=== PATIENT | female | born 1955 | race Caucasian/White ===

== ENCOUNTER → 2016-06-04 | Outpatient (CLI) | payer OTHER ==
[~2016-06-04] MED LIST: ASPI81TA28 PO; IPRA1AER2 INH; LEVO150T9 PO; MECL1TAB42 PO; MOME220A INH; NIAC1TAB52 PO
[2016-06-04 12:24] LABS: BASO % 0.5 %; BASO ABS # 0.03 K/uL (0-0.2); COMPLETE YES; EOS % 8.2 %; HEMATOCRIT 39.3 % (37-47); IG% 0.2 %; LYMPH % 26.8 %; LYMPH ABS # 1.53 K/uL (1.2-3.4); MEAN CELL VOLUME 87.1 fL (80-100); MEAN CORPUSCULAR HEMOGLOBIN 28.4 pg (25-34); MEAN CORPUSCULAR HGB CONC 32.6 g/dl (32-36); MEAN PLATELET VOLUME 11.8 fL (7.4-10.4); MONO % 10.5 %; NEUT % 53.8 %; PLATELET COUNT 360 K/uL (130-400); RED BLOOD COUNT 4.51 M/uL (4.2-5.4); WHITE BLOOD COUNT 5.71 K/uL (4.8-10.8)
[2016-06-04 12:37] LABS: ESTIMATED AVERAGE GLUCOSE 114 mg/dl; HA1C FLAG Normal (Normal)
[2016-06-04 12:41] LABS: ALB/GLOB RATIO 1.1 (0.9-2); ALKALINE PHOSPHATASE 73 U/L (45-117); ALT/SGPT 16 U/L (12-78); AST/SGOT 16 U/L (15-37); BLOOD UREA NITROGEN 21 mg/dl (7-18); BUN/CREATININE RATIO 23.3 (10-20); CALCIUM 8.9 mg/dl (8.5-10.1); CARBON DIOXIDE 27 mmol/L (21-32); CHLORIDE 107 mmol/L (98-107); CHOLESTEROL 215 mg/dl (0-200); CHOLESTEROL/HDL RATIO 4.2; GLUCOSE 95 mg/dl (70-99); HDL CHOLESTEROL 51 mg/dl; LDL CHOLESTEROL CALCULATED 142 mg/dl; POTASSIUM 4.8 mmol/L (3.5-5.1); SODIUM 142 mmol/L (136-145); TRIGLYCERIDES 111 mg/dl (0-150); VERY LOW DENSITY LIPOPROT CALC 22 mg/dl
== END | disposition home or self-care (01) ==
LOC: C.LABBFT 10:04
PROVIDERS: ATTEND Internal Medicine
DX: R73.01 Impaired fasting glucose (principal)

== ENCOUNTER → 2016-06-28 | Outpatient (CLI) | payer OTHER | END | disposition home or self-care (01) | LOC: C.RDSM 13:10 | PROVIDERS: ATTEND Physical Medicine & Rehabilitation Sports Medicine | DX: G89.18 Other acute postprocedural pain (principal); Z96.651 Presence of right artificial knee joint ==

== ENCOUNTER → 2016-12-09 | Outpatient (CLI) | payer OTHER ==
[2016-12-09 11:51] LABS: BASO % 0.4 %; BASO ABS # 0.03 K/uL (0-0.2); COMPLETE YES; EOS % 5.9 %; HEMATOCRIT 40.1 % (37-47); IG% 0.1 %; LYMPH % 22.4 %; LYMPH ABS # 1.65 K/uL (1.2-3.4); MEAN CELL VOLUME 86.8 fL (80-100); MEAN CORPUSCULAR HEMOGLOBIN 27.1 pg (25-34); MEAN CORPUSCULAR HGB CONC 31.2 g/dl (32-36); MEAN PLATELET VOLUME 11.8 fL (7.4-10.4); MONO % 11.7 %; NEUT % 59.5 %; PLATELET COUNT 322 K/uL (130-400); RED BLOOD COUNT 4.62 M/uL (4.2-5.4); WHITE BLOOD COUNT 7.35 K/uL (4.8-10.8)
[2016-12-09 12:03] LABS: ESTIMATED AVERAGE GLUCOSE 117 mg/dl; HA1C FLAG Normal (Normal)
[2016-12-09 12:55] LABS: ALT/SGPT 15 U/L (12-78); AST/SGOT 11 U/L (15-37); BLOOD UREA NITROGEN 24 mg/dl (7-18); BUN/CREATININE RATIO 27.2 (10-20); CARBON DIOXIDE 27 mmol/L (21-32); CHLORIDE 108 mmol/L (98-107); CHOLESTEROL 210 mg/dl (0-200); CREATININE 0.87 mg/dl (0.60-1.20); GLUCOSE 96 mg/dl (70-99); POTASSIUM 4.6 mmol/L (3.5-5.1); SODIUM 142 mmol/L (136-145)
[2016-12-09 13:06] LABS: ALKALINE PHOSPHATASE 98 U/L (45-117); CHOLESTEROL/HDL RATIO 4.1; HDL CHOLESTEROL 51 mg/dl; LDL CHOLESTEROL CALCULATED 135 mg/dl; THYROID STIMULATING HORMONE 0.546 uIu/ml (0.300-4.500); TRIGLYCERIDES 119 mg/dl (0-150); VERY LOW DENSITY LIPOPROT CALC 24 mg/dl
== END | disposition home or self-care (01) ==
LOC: C.LABBFT 08:21
PROVIDERS: ATTEND Internal Medicine
DX: Z00.00 Encounter for general adult medical examination without abnormal findings (principal); E03.9 Hypothyroidism, unspecified; E78.00 Pure hypercholesterolemia, unspecified; D64.9 Anemia, unspecified; R73.01 Impaired fasting glucose; E53.8 Deficiency of other specified B group vitamins

== ENCOUNTER → 2017-06-09 | Outpatient (CLI) | payer OTHER ==
[2017-06-09 12:44] LABS: BASO % 0.8 %; BASO ABS # 0.05 K/uL (0-0.2); EOS ABS # 0.53 K/uL (0-0.5); HEMATOCRIT 40.3 % (37-47); HEMOGLOBIN 12.8 g/dL (12.0-16.0); IG# 0.01 K/uL (0.00-0.02); LYMPH % 26.6 %; LYMPH ABS # 1.75 K/uL (1.2-3.4); MEAN CELL VOLUME 87.2 fL (80-100); MEAN CORPUSCULAR HEMOGLOBIN 27.7 pg (25-34); MEAN CORPUSCULAR HGB CONC 31.8 g/dl (32-36); MEAN PLATELET VOLUME 11.6 fL (7.4-10.4); MONO % 10.3 %; MONO ABS # 0.68 K/uL (0.11-0.59); NEUT % 54.1 %; NEUT ABS # 3.57 K/uL (1.4-6.5); PLATELET COUNT 319 K/uL (130-400); RED CELL DISTRIBUTION WIDTH CV 16.3 % (11.5-14.5); RED CELL DISTRIBUTION WIDTH SD 51.4 fL (36.4-46.3); WHITE BLOOD COUNT 6.59 K/uL (4.8-10.8)
[2017-06-09 13:07] LABS: ALBUMIN 3.9 gm/dl (3.4-5.0); ALT/SGPT 18 U/L (12-78); BLOOD UREA NITROGEN 22 mg/dl (7-18); CALCIUM 9.7 mg/dl (8.5-10.1); CARBON DIOXIDE 27 mmol/L (21-32); CREATININE 0.89 mg/dl (0.60-1.20); GLUCOSE 97 mg/dl (70-99); POTASSIUM 4.8 mmol/L (3.5-5.1); SODIUM 137 mmol/L (136-145)
[2017-06-09 13:17] LABS: ALKALINE PHOSPHATASE 91 U/L (45-117); AST/SGOT 14 U/L (15-37); CHOLESTEROL 226 mg/dl (0-200); LDL CHOLESTEROL CALCULATED 148 mg/dl; TOTAL PROTEIN 7.6 gm/dl (6.4-8.2)
[2017-06-09 13:28] LABS: HEMOGLOBIN A1C 5.7 % (4.5-5.6)
== END | disposition home or self-care (01) ==
LOC: C.LABBFT 10:45
PROVIDERS: ATTEND Physician Assistant Medical
DX: E53.8 Deficiency of other specified B group vitamins (principal); E78.00 Pure hypercholesterolemia, unspecified; E03.9 Hypothyroidism, unspecified; R73.01 Impaired fasting glucose

== ENCOUNTER → 2017-06-27 | Outpatient (CLI) | payer OTHER | END | disposition home or self-care (01) | LOC: C.RDSM 12:51 | PROVIDERS: ATTEND Physical Medicine & Rehabilitation Sports Medicine | DX: Z96.651 Presence of right artificial knee joint (principal) ==

== ENCOUNTER → 2017-12-16 | Outpatient (CLI) | payer OTHER ==
[2017-12-16 13:11] LABS: HEMOGLOBIN A1C 5.9 % (4.5-5.6)
[2017-12-16 13:21] LABS: ALBUMIN 3.6 gm/dl (3.4-5.0); ALKALINE PHOSPHATASE 93 U/L (45-117); ALT/SGPT 16 U/L (12-78); AST/SGOT 15 U/L (15-37); BLOOD UREA NITROGEN 19 mg/dl (7-18); CALCIUM 8.7 mg/dl (8.5-10.1); CARBON DIOXIDE 28 mmol/L (21-32); CHOLESTEROL 236 mg/dl (0-200); CREATININE 0.87 mg/dl (0.60-1.20); GLUCOSE 102 mg/dl (70-99); LDL CHOLESTEROL CALCULATED 164 mg/dl; POTASSIUM 4.3 mmol/L (3.5-5.1); SODIUM 140 mmol/L (136-145)
== END | disposition home or self-care (01) ==
LOC: C.LABBFT 09:16
PROVIDERS: ATTEND Internal Medicine
DX: E03.9 Hypothyroidism, unspecified (principal); R73.01 Impaired fasting glucose; E78.00 Pure hypercholesterolemia, unspecified

== ENCOUNTER 2019-01-15 00:28 | Observation (INO) ==
[2019-01-15 01:22] LABS: Basophils # (auto) 0.03 K/uL (0-0.2); Basophils % (auto) 0.4 %; Eosinophils # (auto) 0.38 K/uL (0-0.5); Eosinophils % (auto) 4.6 %; Hematocrit (blood only) 37.2 % (37-47); Hemoglobin 11.9 g/dL (12.0-16.0); Immature Granulocytes # (auto) 0.01 K/uL (0.00-0.02); Immature Granulocytes % (auto) 0.1 %; Lymphocytes # (auto) 2.22 K/uL (1.2-3.4); Lymphocytes % (auto) 26.6 %; Mean Corpuscular Hemoglobin 27.7 pg (25-34); Mean Corpuscular Volume 86.5 fL (80-100); Mean Platelet Volume 11.3 fL (7.4-10.4); Monocytes # (auto) 0.75 K/uL (0.11-0.59); Neutrophils # (auto) 4.96 K/uL (1.4-6.5); Neutrophils % (auto) 59.3 %; Platelet Count 286 K/uL (130-400); RDW Coefficient of Variation 15.3 % (11.5-14.5); RDW Standard Deviation 48.6 fL (36.4-46.3); White Blood Count 8.35 K/uL (4.8-10.8)
[2019-01-15 01:29] LABS: Alanine Aminotransferase 16 U/L (12-78); Albumin Level 3.6 gm/dl (3.4-5.0); Aspartate Aminotransferase 10 U/L (15-37); BUN Creatinine Ratio 24.3 (10-20); Blood Urea Nitrogen 26 mg/dl (7-18); Calcium 8.4 mg/dl (8.5-10.1); Carbon Dioxide 28 mmol/L (21-32); Chloride 106 mmol/L (98-107); Est GFR (African American) 63.8; Est GFR (Non-African American) 55.1; Glucose 112 mg/dl (70-99); Magnesium 2.4 mg/dl (1.8-2.4); Potassium 4.3 mmol/L (3.5-5.1); Sodium 142 mmol/L (136-145)
[2019-01-15 01:33] LABS: Partial Thromboplastin Ratio 0.9; Partial Thromboplastin Time 24.6 Seconds (21.0-31.0); Prothrombin Time 10.3 Seconds (9.0-12.0)
[2019-01-15 01:34] LABS: Alkaline Phosphatase 77 U/L (45-117); Bilirubin,Total 0.3 mg/dl (0.2-1); Globulin 3.6 gm/dl (2.5-4.0); Total Protein 7.2 gm/dl (6.4-8.2); Troponin I < 0.015 ng/ml (0-0.045)
[2019-01-15] MEDS ORDERED: ACETAMINOPHEN 500 MG TAB PO STA (02:35)
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
[2019-01-15] MEDS ORDERED: TRAMADOL HCL 50 MG TABLET PO PRN (04:27)
[2019-01-15] MEDS ORDERED: PHARMACIST DISCHARGE MED REC CONSULT PRN (04:27)
[2019-01-15] MEDS ORDERED: POLYETHYLENE (MIRALAX) 17 GM PACK PO PRN (04:27)
[2019-01-15] MEDS ORDERED: ONDANSETRON INJ 2 MG/ML 2 ML VIAL IV PRN (04:27)
[2019-01-15] MEDS ORDERED: OPTIRAY 320 125ml IV PRN (05:01)
[2019-01-15] MEDS: SODIUM CHLORIDE 0.9% 1000ML 1,000 ML IV SCH ×2 (05:16→15:25)
--- NOTE | 2019-01-15 05:37 | Emergency Department Note ---
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 The patient states she was watc garcia TV and started to have pain in her right eye and right ear. The patient's friend states the patient passed out for 10 minutes and was unable to be woken up. He states the patient woke up and was confused what day it was and what she had to do tomorrow. He notes she had a little slurred speech and was disoriented. The patient states she still feels tired and dizzy. She notes she has ear pain. The patient notes the episode felt like when her sugar dropped previously. She notes she did not check her sugar and she does not take insulin or oral diabetic medicine. The patient states she has never had an episode like this before. She notes she was fine before the episode. The patient's friend notes the patient has been under stress because her PCP is worried she might have MS. The friend states her PCP is concerned for MS because the patient has been shaky, dizzy, has intermittent blurry vision, and pain. She notes she is supposed to get an MRI this week. The patient denies having nausea, vomiting, abdominal pain, leg cramping, leg swelling, history of high BP, and family history of strokes. The patient's son notes the patient has been more forgetful and has been getting headaches for over a month. The patient notes her PCP is Dr. Dhaliwal. Home Medications Home Medications Medication Instructions Recorded Confirmed Type tramadol 50 mg tablet 100 mg PO BID PRN #120 tab 01/09/19 01/15/19 Rx levothyroxine 150 mcg tablet 150 mcg PO DAILY 01/11/19 01/15/19 History acetaminophen [Tylenol Arthritis 650 mg PO BIDM 01/15/19 01/15/19 History Pain] Allergies Allergy/AdvReac Type Severity Reaction Status Date / Time egg Allergy Mild HICCUPS IF Verified 01/15/19 01:10 EATS TOO MANY Igkimds-Dsi-Hcm Reductase AdvReac Mild NAUSEA/VOMI Verified 01/15/19 01:10 Inhibitor TING Past Med/Surg History Medical History Asthma Fibromyalgia Osteoarthritis Surgical History History of appendectomy History of back surgery History of cataract surgery History of right knee joint replacement Social History Preferred Language: Indonesian Communication Ability: Effective Staff Development Coordinator Required: No Beliefs That Will Affect Care: None marital status: Single Current Living Situation: Alone current occupational status: unemployed Feels Safe at Home: Yes Safety Concerns: Feels Safe At This Time Smoking Status: Never smoker Hx Alcohol Use: No Hx Substance Use: No Review of Systems See HPI for pertinent positives & negatives. and A total of 10 systems reviewed and were otherwise negative Physical Exam Vital Signs Vital Signs - 24 hr 01/15/19 00:32 01/15/19 00:55 01/15/19 01:46 Temperature 36.6 C Temperature Source Oral Sepsis Recent Fever Within 48 Hours No Sepsis Action Taken by Nursing No Action Required Pulse Rate 83 Pulse Rate [Apical] 85 83 Pulse Rate from SpO2 Sensor Pulse Strength Normal Respiratory Rate 18 20 22 Respiratory Effort / Characteristics Non-Labored Spontaneous Non-Labored Respiratory Depth Normal Normal Blood Pressure 177/100 H Blood Pressure [Right Arm] 175/97 H 155/91 H Blood Pressure Mean 125 Blood Pressure Mean [Right Arm] 123 112 Pulse Oximetry 96 97 98 Oxygen Delivery Method Room Air Room Air Room Air 01/15/19 02:00 01/15/19 03:01 Temperature Temperature Source Sepsis Recent Fever Within 48 Hours Sepsis Action Taken by Nursing Pulse Rate 81 Pulse Rate [Apical] 87 Pulse Rate from SpO2 Sensor 82 Pulse Strength Respiratory Rate 17 16 Respiratory Effort / Characteristics Respiratory Depth Blood Pressure 159/91 H Blood Pressure [Right Arm] 171/71 H Blood Pressure Mean 113 Blood Pressure Mean [Right Arm] 104 Pulse Oximetry 95 96 Oxygen Delivery Method Room Air HEENT: Head - normocephalic and atraumatic. Pupils are equal, round, and reactive to light. Extraocular eye muscles are intact, and sclera are anicteric. Nose - moist nasal mucosa without discharge. Mouth - moist buccal mucosa. Oropharynx is nonerythematous and there is no tonsillar exudate or edema noted. Neck: Supple; no JVD, nuchal rigidity, cervical lymphadenopathy, or auscultated bruits. Heart: Regular rate and rhythm. There is a normal S1 and S2 with no murmurs, clicks, or gallops appreciated. Lungs: Clear to auscultation bilaterally with no wheezes, rales, or rhonchi. Abdomen: Soft, completely nontender, nondistended, with good bowel sounds. There are no palpable pulsatile masses or hepatosplenomegaly. There is no guarding, rigidity, or rebound noted. Extremities: No evidence of cyanosis, clubbing, or edema. There are easily palp able peripheral pulses. Skin: warm and dry with good turgor and no rashes. Neuro: Cranial nerves II-XII are intact except patient appears to have slight left sided mouth droop and loss of definition to the left nasal labial fold. Left arm weakness at shoulder and elbow. Lower extremities have normal pedal push and pull Course 0049: The patient was evaluated in room B3B, and a complete history and physical examination were performed. A stroke protocol was performed. A twelve-lead EKG was obtained as described below. The patient went for a stat CT scan of the brain. 0220: I reevaluated the patient. I reviewed the lab and imaging results with the patient, her boyfriend, and her son. I spent a great deal time talking to the patient and her family about her last known well time. It seems that she has had intermittent episodes of confusion and possible slurred speech for a couple of weeks. She also describes not being able to lift her left arm for almost a month. She also describes dragging her left foot at times but that this was secondary to pain in the left knee. The patient is continuing to complain about pain over her right temporal region. 0230: I discussed the patient's case with Dr. Gabby Scanlon - [facility] Hospitalist. She will evaluate the patient for further management Administered Medications Sodium Chloride (Nss 1000ml) 1,000 mls @ 100 mls/hr IV .Q10H EDOUARD Stop: 02/14/19 04:26 Last Admin: 01/15/19 05:16 Dose: 100 mls/hr Documented by: [id number] Ioversol (Optiray 320 125ml) 120 ml IV ONCE PRN PRN Reason: Interaction Checking Stop: 01/19/19 05:00 Last Admin: 01/15/19 05:07 Dose: 120 ml Documented by: [id number] Levothyroxine Sodium (Synthroid) 150 mcg PO DAILYBB EDOUARD Stop: 02/14/19 06:29 Last Admin: 01/15/19 05:16 Dose: 150 mcg Documented by: [id number] Discontinued Medications Acetaminophen (Tylenol) 1,000 mg PO NOW STA Stop: 01/15/19 02:36 Last Admin: 01/15/19 02:45 Dose: 1,000 mg Documented by: [id number] Medical Decision Making Differential Diagnosis Differential Diagnosis: TIA, CVA, cardiac dysrhythmia, intracranial mass, MS, anxiety, temporal arteritis, seizure, and early dementia Medical Records Attestation: I reviewed the patient's medical records. Home Medications Current Medication List: was personally reviewed by me Laboratory Data Attestation: I reviewed the patient's lab results. Result diagrams: 01/15/19 01:03 01/15/19 01:03 Lab Results 01/15/19 01/15/19 01/15/19 Range/Units 00:54 01:03 01:03 WBC 8.35 (4.8-10.8) K/uL RBC 4.30 (4.2-5.4) M/uL Hgb 11.9 L (12.0-16.0) g/dL Hct 37.2 (37-47) % MCV 86.5 (80-100) fL MCH 27.7 (25-34) pg MCHC 32.0 (32-36) g/dL RDW Std Deviation 48.6 H (36.4-46.3) fL RDW Coeff of Mary 15.3 H (11.5-14.5) % Plt Count 286 (130-400) K/uL MPV 11.3 H (7.4-10.4) fL Immature Gran % (Auto) 0.1 % Neut % (Auto) 59.3 % Lymph % (Auto) 26.6 % [place] % (Auto) 9.0 % Eos % (Auto) 4.6 % Baso % (Auto) 0.4 % Immature Gran # (Auto) 0.01 (0.00-0.02) K/uL Neut # (Auto) 4.96 (1.4-6.5) K/uL Lymph # (Auto) 2.22 (1.2-3.4) K/uL [place] # (Auto) 0.75 H (0.11-0.59) K/uL Eos # (Auto) 0.38 (0-0.5) K/uL Baso # (Auto) 0.03 (0-0.2) K/uL ESR (0-21) mm/hr PT 10.3 (9.0-12.0) Seconds INR 1.0 (0.9-1.1) APTT 24.6 (21.0-31.0) Seconds PTT Ratio 0.9 Sodium (136-145) mmol/L Potassium (3.5-5.1) mmol/L Chloride (98-107) mmol/L Carbon Dioxide (21-32) mmol/L Anion Gap (3-11) BUN (7-18) mg/dl Creatinine (0.6-1.2) mg/dl Est Cr Clr Drug Dosing ml/min Est GFR ( Amer) Est GFR (Non-Af Amer) BUN/Creatinine Ratio (10-20) Glucose (70-99) mg/dl POC Glucose 102 H (70-99) Calcium (8.5-10.1) mg/dl Magnesium (1.8-2.4) mg/dl Total Bilirubin (0.2-1) mg/dl AST (15-37) U/L ALT (12-78) U/L Alkaline Phosphatase (45-117) U/L Troponin I (0-0.045) ng/ml Total Protein (6.4-8.2) gm/dl Albumin (3.4-5.0) gm/dl Globulin (2.5-4.0) gm/dl Albumin/Globulin Ratio (0.9-2) Blood Type Antibody Screen 01/15/19 01/15/19 01/15/19 Range/Units 01:03 01:03 01:21 WBC (4.8-10.8) K/uL RBC (4.2-5.4) M/uL Hgb (12.0-16.0) g/dL Hct (37-47) % MCV (80-100) fL MCH (25-34) pg MCHC (32-36) g/dL RDW Std Deviation (36.4-46.3) fL RDW Coeff of Mary (11.5-14.5) % Plt Count (130-400) K/uL MPV (7.4-10.4) fL Immature Gran % (Auto) % Neut % (Auto) % Lymph % (Auto) % [place] % (Auto) % Eos % (Auto) % Baso % (Auto) % Immature Gran # (Auto) (0.00-0.02) K/uL Neut # (Auto) (1.4-6.5) K/uL Lymph # (Auto) (1.2-3.4) K/uL [place] # (Auto) (0.11-0.59) K/uL Eos # (Auto) (0-0.5) K/uL Baso # (Auto) (0-0.2) K/uL ESR 83 H (0-21) mm/hr PT (9.0-12.0) Seconds INR (0.9-1.1) APTT (21.0-31.0) Seconds PTT Ratio Sodium 142 (136-145) mmol/L Potassium 4.3 (3.5-5.1) mmol/L Chloride 106 (98-107) mmol/L Carbon Dioxide 28 (21-32) mmol/L Anion Gap 8.0 (3-11) BUN 26 H (7-18) mg/dl Creatinine 1.06 (0.6-1.2) mg/dl Est Cr Clr Drug Dosing 68.0 ml/min Est GFR ( Amer) 63.8 Est GFR (Non-Af Amer) 55.1 BUN/Creatinine Ratio 24.3 H (10-20) Glucose 112 H (70-99) mg/dl POC Glucose (70-99) Calcium 8.4 L (8.5-10.1) mg/dl Magnesium 2.4 (1.8-2.4) mg/dl Total Bilirubin 0.3 (0.2-1) mg/dl AST 10 L (15-37) U/L ALT 16 (12-78) U/L Alkaline Phosphatase 77 (45-117) U/L Troponin I < 0.015 (0-0.045) ng/ml Total Protein 7.2 (6.4-8.2) gm/dl Albumin 3.6 (3.4-5.0) gm/dl Globulin 3.6 (2.5-4.0) gm/dl Albumin/Globulin Ratio 1.0 (0.9-2) Blood Type Cancelled Antibody Screen Cancelled 01/15/19 Range/Units 01:51 WBC (4.8-10.8) K/uL RBC (4.2-5.4) M/uL Hgb (12.0-16.0) g/dL Hct (37-47) % MCV (80-100) fL MCH (25-34) pg MCHC (32-36) g/dL RDW Std Deviation (36.4-46.3) fL RDW Coeff of Mary (11.5-14.5) % Plt Count (130-400) K/uL MPV (7.4-10.4) fL Immature Gran % (Auto) % Neut % (Auto) % Lymph % (Auto) % [place] % (Auto) % Eos % (Auto) % Baso % (Auto) % Immature Gran # (Auto) (0.00-0.02) K/uL Neut # (Auto) (1.4-6.5) K/uL Lymph # (Auto) (1.2-3.4) K/uL [place] # (Auto) (0.11-0.59) K/uL Eos # (Auto) (0-0.5) K/uL Baso # (Auto) (0-0.2) K/uL ESR (0-21) mm/hr PT (9.0-12.0) Seconds INR (0.9-1.1) APTT (21.0-31.0) Seconds PTT Ratio Sodium (136-145) mmol/L Potassium (3.5-5.1) mmol/L Chloride (98-107) mmol/L Carbon Dioxide (21-32) mmol/L Anion Gap (3-11) BUN (7-18) mg/dl Creatinine (0.6-1.2) mg/dl Est Cr Clr Drug Dosing ml/min Est GFR ( Amer) Est GFR (Non-Af Amer) BUN/Creatinine Ratio (10-20) Glucose (70-99) mg/dl POC Glucose (70-99) Calcium (8.5-10.1) mg/dl Magnesium (1.8-2.4) mg/dl Total Bilirubin (0.2-1) mg/dl AST (15-37) U/L ALT (12-78) U/L Alkaline Phosphatase (45-117) U/L Troponin I (0-0.045) ng/ml Total Protein (6.4-8.2) gm/dl Albumin (3.4-5.0) gm/dl Globulin (2.5-4.0) gm/dl Albumin/Globulin Ratio (0.9-2) Blood Type A Positive Antibody Screen NEGATIVE Imaging Data Radiologist's Impression: Radiology results as stated below per my review and the radiologist's interpretation: CT HEAD: No acute intracranial hemorrhage, mass effect, midline shift, hydrocephalus or acute infarct. Bony structures are intact. Soft tissues are unremarkable. 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 The patient had confusion and slurred speech for approximately 10 minutes following this syncopal event. However, the patient has had multiple neurological symptoms over the past 1 month including left upper extremity weakness, forgetfulness, slurred speech, and possible left leg weakness. The left-sided facial droop seems to be new as of today. CT scan of the brain was unremarkable. I do not think the patient is a TPA candidate because her last known well time is not well-defined. She did have a syncopal event with some associated confusion and slurred speech following the event but that has since resolved. I discussed the case and a stroke work-up with the [facility] Hospitalist and they will evaluate for further management. Impression & Plan Syncope, CVA (cerebrovascular accident) Discharge Plan Visit Data *Final* Discharge Date/Time: 01/15/19 03:58 Chief Complaint: Vertigo Stated Complaint: AMS ED Provider: Heavenly Santillan Discharge Problem: Syncope, CVA (cerebrovascular accident) Patient Disposition: Admitted As Inpatient Discharge Instructions Interventions: ED Discharge Assessment Last Done: 01/15/19 03:58 Discharge Problem: Syncope Qualifiers: Syncope type: unspecified Qualified Code(s): R55 - Syncope and collapse CVA (cerebrovascular accident) Qualifiers: CVA mechanism: unspecified Qualified Code(s): I63.9 - Cerebral infarction, unspecified The scribe's documentation has been prepared under my direction and personally reviewed by me in its entirety. I confirm that the note above accurately reflects all work, treatment, procedures, and medical decision making performed by me.
--- NOTE | 2019-01-15 06:27 | CT Scan Report ---
CT head/brain wo con CLINICAL HISTORY: 63 years-old Female presenting with vertigo, dizziness, Stroke evaluation. TECHNIQUE: Multidetector CT imaging of the head was performed without the use of intravenous contrast . IV contrast: None. One or more dose lowering techniques were used consistent with the principles of ALARA (as low as reasonably achievable), including automatic exposure control, mA or kV adjustment t o individual patient size, and/or use of iterative reconstruction. COMPARISON: 12/21/2010. CT DOSE (mGy.cm): The estimated cumulative dose is 537.48 mGy.cm. 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 Ventricles and sulci normal in size. No hemorrhage. Brain parenchyma normal in appearance with preser mora christiansen-white differentiation. No acute territorial infarct. No mass effect or midline shift. No ext ra-axial fluid collection. Paranasal sinuses and mastoid air cells clear. Calvarium intact. IMPRESSION: 1. No acute intracranial abnormality. Electronically signed by: Ravinder De La Fuente M.D. 01/15/2019 6:26 AM
[2019-01-15] MEDS ORDERED: LEVOTHYROXINE SODIUM 150 MCG TABLET PO SCH (06:30)
--- NOTE | 2019-01-15 07:21 | CT Scan Report ---
CT angio head w con CLINICAL HISTORY: 63 years-old Female presenting with neurologic deficits, vertigo, dizziness, left-s ided weakness, possible stroke. TECHNIQUE: Multidetector CT angiography of the head was performed after the administration of intrave nous contrast. 3-D volumetric and/or maximum intensity projection (MIP) images were subsequently vik nstructed for review. IV contrast: 120 mL of Optiray 320. One or more dose lowering techniques were u sed consistent with the principles of ALARA (as low as reasonably achievable), including automatic ex posure control, mA or kV adjustment to individual patient size, and/or use of iterative reconstructio n. COMPARISON: Noncontrast CT head performed earlier the same day.. CT DOSE (mGy.cm): The estimated cumulative dose is 634.64 mGy.cm. FINDINGS: Broke Beater topogram: Unremarkable. Anterior circulation: Intracranial portions of the internal carotid arteries patent to the level of t he termini. Anterior cerebral arteries patent. Middle cerebral arteries patent. Anterior communicatin g artery patent. Posterior circulation: Codominant vertebral arteries. Intradural portions of the vertebral arteries p atent. Posterior inferior cerebellar arteries patent. Basilar artery patent. Anterior inferior cerebe llar arteries poorly visualized. Superior cerebellar arteries patent. Posterior cerebral arteries pat ent. Posterior communicating arteries patent. Dural venous sinuses: Patent. Other: Allowing for the phase of contrast, brain parenchyma within normal limits. Calvarium intact. IMPRESSION: 1. No evidence of aneurysm, focal vessel occlusion, or significant stenosis of the intracranial willa christina. Electronically signed by: Ravinder De La Fuente M.D. 01/15/2019 7:20 AM
--- NOTE | 2019-01-15 07:26 | CT Scan Report ---
CT angio neck with con CLINICAL HISTORY: 63 years-old Female presenting with left-sided weakness, vertigo, dizziness, stroke evaluation. TECHNIQUE: Multidetector CT angiography of the neck was performed after the administration of intrave nous contrast. 3-D volumetric and/or maximum intensity projection (MIP) images were subsequently vik nstructed for review. IV contrast: 120 mL of Optiray 320. One or more dose lowering techniques were u sed consistent with the principles of ALARA (as low as reasonably achievable), including automatic ex posure control, mA or kV adjustment to individual patient size, and/or use of iterative reconstructio n. Stenosis measurements were based on NASCET-like criteria (distal lumen diameter as the denominator for stenosis measurement). COMPARISON: None. CT DOSE (mGy.cm): The estimated cumulative dose is 634.64. 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 Aortic arch: Atherosclerosis of the aortic arch with patent origins of the branch vessels. Left verte bral artery origin from the aortic arch noted. Common origin of the innominate and left common caroti d artery. Innominate artery: Patent. Right subclavian artery: Patent. Right common carotid artery: Patent. Right internal and external carotid arteries: Mild calcified atherosclerotic plaque at the bifurcatio n without stenosis of the internal or external carotid arteries. Left common carotid artery: Patent. Left internal and external carotid arteries: Mild calcified and noncalcified atherosclerotic plaque a t the carotid bifurcation without evidence of stenosis of the internal or external carotid arteries. Tortuosity of the mid internal carotid artery course. Left subclavian artery: Patent. Vertebral arteries: Codominant vertebral arteries. Origins and courses of the bilateral vertebral art eries patent. Other: Limited intracranial evaluation within normal limits. Soft tissues of the neck normal allowing for the phase of contrast. Degenerative changes of the cervical spine. Lung apices clear. IMPRESSION: 1. Mild atherosclerosis. No evidence of dissection, focal vessel occlusion, or significant stenosis of the cervical arteries. Electronically signed by: Ravinder De La Fuente M.D. 01/15/2019 7:24 AM
[2019-01-15] MEDS ORDERED: ACETAMINOPHEN 325 MG TAB PO SCH (08:00)
[2019-01-15] MEDS ORDERED: GADOBUTROL 65ML VIAL IV PRN (08:24)
--- NOTE | 2019-01-15 08:53 | Magnetic Resonance Report ---
MR brain MS wo/w con CLINICAL HISTORY: 63 years-old Female presenting with neurologic deficits possible stroke vs. MS per pcp, right eye pain radiating to the right ear, syncope, confusion, left arm weakness and facial droo p. TECHNIQUE: Multisequence, multiplanar MR imaging of the brain was performed before and after the admi nistration of intravenous contrast. IV contrast: 11.7 mL of Gadavist. COMPARISON: CT head performed earlier the same day. FINDINGS: Localizer images: Unremarkable. Bone marrow signal intensity within the calvarium within normal limits. Bilateral mi'kmaq lenses are a bsent. Normal midline sagittal structures. Ventricles and sulci normal in size. No mass effect or midline sh ift. No restricted diffusion or hemorrhage. Numerous (over 20) small to punctate T-2/flair hyperinten se foci within periventricular and subcortical white matter predominantly of the frontal lobes. These largely spare the corpus callosum. No associated restricted diffusion or enhancement. No abnormal pa renchymal enhancement. No extra-axial fluid collection. T2 skull base flow voids preserved. IMPRESSION: 1. Numerous small to punctate nonspecific T2/FLAIR hyperintense lesions in the periventricular and s ubcortical frontal lobe white matter. No associated restricted diffusion or enhancement. These could represent demyelinating disease among other etiologies. 2. No acute intracranial pathology. Electronically signed by: Ravinder De La Fuente M.D. 01/15/2019 8:52 AM
[2019-01-15] MEDS ORDERED: ASPIRIN 81 MG ECTAB PO SCH (09:00)
[2019-01-15] MEDS ORDERED: methylPREDNISolone 1,000 MG in DEXTROSE 5% 250 ML IV SCH ×2 (09:00→10:00)
[2019-01-15 10:47] LABS: BUN Creatinine Ratio 23.9 (10-20); Calcium 8.9 mg/dl (8.5-10.1); Creatinine Clr Calc Pharmacy 74.3 ml/min; Est GFR (Non-African American) 61.3; Potassium 4.2 mmol/L (3.5-5.1)
--- NOTE | 2019-01-15 11:06 | Neurology Consultation ---
Date of Consultation January 15, 2019 Assessment & Plan (1) Syncope: (2) Left-sided weakness: (3) Headache: (4) Fibromyalgia: (5) Arthritis: Patient had syncope the evening of January 14 likely vasovagal secondary to sharp headache pain versus some orthostasis. She remained in the upright position and may have had some secondary seizure-like activity for a second, but took some 10-15 seconds to become alert again because she was still in upright position. The post event confusion is typical for this as well. This morning she is doing very well clinically with no focal neurologic signs of an objective nature. She does have some subjective left facial numbness as described above. I do not see any significant facial droop on the left although there is some asymmetry. She does have some old right lower extremity weakness proximally from a previous surgery causing her limp and she has some giveaway weakness in the left upper extremity secondary to shoulder pain (suspect primary shoulder issue). MRI of the brain shows mild to moderate old small vessel ischemic disease of a small, nonspecific nature. There were no acute changes or acute/subacute stroke. There was nothing by the MRI that was suggestive of multiple sclerosis although this cannot entirely be excluded. Her clinical history picture is not indicative of something like multiple sclerosis either. However, MS is difficult to completely exclude clinically. I am more concerned about her intense right temporal headache with blurry vision in the right eye and elevated sed rate 83. This could be temporal arteritis. She has been having headaches for about 2 months now. She has been initiated on Solu-Medrol. Risk factors for stroke include dyslipidemia and age/genetics. Recommendations: 1. Continue 81 mg aspirin tablet daily, for stroke/TIA prevention. 2. Consider temporal artery biopsy to see if we can make a more definitive diagnosis. 3. I have no issue with continuing steroids otherwise. 4. Increase activity as able. 5. I see no real indication for a lumbar puncture at this time. Overall, I spent a total of 115 minutes with this case including review of records, review of MRI films, direct evaluation the patient at bedside, and discussion of the case with the patient and her family and friends at bedside and Dr. Quinn, including differential diagnosis and treatment options. History of Present Illness Reason for Consultation: Patient is a 63-year-old, who I was asked to see at the request of Dr. Scanlon, for neurologic consultation regarding syncope, weakness, and elevated sedimentation rate with headache. Requesting Physician: Dr. Scanlon Attending Physician: Carmine Quinn DO History of Present Illness Patient has a 6-7 year history of fibromyalgia and also carries diagnosis of dyslipidemia, osteoarthritis, hypothyroidism, and asthma. There is no history of diabetes, hypertension, cigarette smoking, heart disease, or stroke. About 2 months ago, the patient noted headaches across her forehead of a either a pressure sensation or a pounding. Aleve would help. Add left shoulder weakness and pain with left upper extremity weakness. She had no neck pain. She denied any numbness and tingling in her arms or legs and no other limb had any new weakness. Her right leg has been weak and she has had a limp since 1983 when she had her low back surgery. She denies incontinence of urine. Her right eye has blurry vision for the last 2 months. She gets some lightheadedness with standing or sitting up. In the past, she has had what sounds like true vertigo but she has not had this in a couple of years. In the evening of January 14 she had a little bit of nonspecific lightheadedness with sitting up and changing position. Sometime around 10 o'clock she had been sitting upright on the couch when she felt a sharp pain in her right islam and apparently passed out. She does not recall much else in the way of warning and does not remember the event. Her boyfriend, who was present in the room today stated that she jerked her left arm once or twice and jerked her head back once and was unresponsive with her eyes closed. Voice did not wake her and gentle shaking did weaker but by 10-15 seconds (still in an upright position) she woke up. She was somewhat confused for about an hour. There was no incontinence of urine or tongue biting. There were no other abnormal involuntary movements. She arrived at the emergency room January 15 at 0032 the temperature 36.6, pulse 83 and regular, respiratory rate 18, blood pressure 177/100 and O2 saturation 96%. Clinically she was described as having a possible left facial droop and left upper extremity weakness. CBC was unremarkable. Chem profile was unremarkable. Sed rate was 83. CT scan of the head was unremarkable. CT angiography of the head and neck showed no significant stenoses or vessel anomalies although the with some plaque in the neck. MRI of the brain showed mild to at best moderate diffuse nonspecific scattered small white matter ischemia of an old nature. There were no acute changes. The pattern did not look like MS specifically although demyelinating disease could not entirely be excluded. I reviewed these films. Patient received 1 g of IV methylprednisolone. This morning, she feels much better with a markedly reduced headache at 1/10. She has some blurry vision in the right eye, numbness of her left face, and weakness in the left arm as before. She denies any lightheadedness or vertigo. Allergies Allergy/AdvReac Type Severity Reaction Status Date / Time egg Allergy Mild HICCUPS IF Verified 01/15/19 01:10 EATS TOO MANY [id number]-Rbm Reductase AdvReac Mild NAUSEA/VOMI Verified 01/15/19 01:10 Inhibitor TING Home Medications Home Medications Medication Instructions Recorded Confirmed Type tramadol 50 mg tablet 100 mg PO BID PRN #120 tab 01/09/19 01/15/19 Rx levothyroxine 150 mcg tablet 150 mcg PO DAILY 01/11/19 01/15/19 History acetaminophen [Tylenol Arthritis 650 mg PO BIDM 01/15/19 01/15/19 History Pain] Patient History Medical History Asthma Fibromyalgia Osteoarthritis Surgical History History of appendectomy History of back surgery History of cataract surgery History of right knee joint replacement Family History Mother Dementia Father , in his 60s of an [place] Coronary heart disease Myocardial infarction Social History Preferred Language: Syriac Communication Ability: Effective 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 Beliefs That Will Affect Care: None marital status: Single Current Living Situation: Alone current occupational status: employed 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 Feels Safe at Home: Yes Safety Concerns: Feels Safe At This Time Smoking Status: Never smoker Hx Alcohol Use: No Hx Substance Use: No Review of Systems Constitutional: no fever, no fatigue and no weakness Eyes: + problem reported (Blurry vision right eye); no diplopia, no eye pain and no worsening vision Ear, Nose, Mouth, Throat: no ear pain, no tinnitus, no hearing loss, no dizziness, no snoring, no hoarseness and no dysphagia Respiratory: no cough and no dyspnea Cardiovascular: no chest pain, no palpitations and no lightheadedness Gastrointestinal: no abdominal pain, no nausea and no vomiting Genitourinary: no dysuria, no urinary frequency and no urinary incontinence Musculoskeletal: no back pain, no neck pain, no radicular pain, no joint pain and no myalgia Integumentary: no rash and no lesions Neurologic: + localized weakness and + headache(s); no gait abnormality, no generalized weakness, no tingling, no numbness, no tremor(s), no abnormal movements, no abnormal speech, no confusion and no memory loss Psychiatric: no depression, no irritability, no anxiety, no difficulty concentrating, no confusion and no hallucinations Endocrine: no fatigue and no flushing Hematologic / Lymphatic: no easy bleeding and no easy bruising Allergy / Immunological: no urticaria and no problem reported Physical Exam Physical Exam: The patient is left-handed. The patient is awake, alert, and attentive. Speech is normal without any aphasia or dysarthria. She can name objects, repeat phrases, and has normal spontaneous speech. Mentation and thought processes are intact, with orientation to person, place and time, and normal fund of knowledge. Attention and concentration are normal. Mood and affect are normal and appropriate. General appearance and grooming are normal. Short and long-term memory are intact. The discs are sharp with positive venous pulsations bilaterally. There are no exudates, hemorrhages, or blood vessel changes seen. Pupils are 4 mm bilaterally and reactive to light. Extraocular eye muscles are intact without nystagmus. Visual acuity and visual morrison seem normal grossly to confrontation. There is decreased sensation to touch in V2 and V3 on the left compared to the right which is normal. V1 is spared. Corneal reflexes are positive bilaterally. Facial strength was normal bilaterally. Although there may be some slight asy mmetry at the corners of the mouth both move well voluntarily. Hearing seems normal to whisper and finger rub bilaterally. Palate moves well without asymmetry. There is normal sternocleidomastoid and trapezius (shoulder shrug) strength bilaterally. Tongue is midline with good strength bilaterally. Neck has a full range of motion without discomfort. There are no cervical bruits bilaterally. There are no cranial or ocular bruits. Heart is without murmur. There is a regular rhythm and rate. Cervical, thoracic, and lumbar spine are nontender to palpation. Gait is narrow based, but she limps favoring the right leg. Stance is reasonable eyes open. With outstretched arms there is no drift. There are no resting, postural, or action tremors. There is no ataxia with finger to nose testing. There is good facility in the hands. No other abnormal involuntary movements are noted. Motor strength is 5/5 diffusely in the right upper extremity and both legs both proximally and distally. Left upper extremity has some giveaway weakness distally and giveaway weakness secondary to pain proximally at the shoulder. The limbs have good tone without rigidity or spasticity. There is no atrophy noted in the muscles. Muscle bulk is normal, there is no tenderness to palpation, no myotonia to percussion, and no fasciculations seen. Sensory examination is intact to touch and pin throughout all 4 limbs diffusely. Vibratory and position sense testing is normal bilaterally as well. There is normal sensation to temperature. Reflexes are 1/4 in the biceps, triceps, brachioradialis, and quadriceps tendons bilaterally. Achilles tendon reflexes were absent bilaterally. There is no clonus bilaterally. Toes are downgoing with plantar stimulation bilaterally. Peripheral pulses are present and of normal quality distally in all 4 limbs. There is no peripheral edema noted in the limbs. Results & Data Vital Signs (Past 12 Hours) Vital Signs Temp Pulse Pulse Resp BP BP Pulse Ox 01/15/19 07:34 79 01/15/19 05:04 80 01/15/19 04:00 37.1 C 76 16 138/67 97 01/15/19 03:58 78 18 151/71 H 97 01/15/19 03:01 81 16 159/91 H 96 01/15/19 02:00 87 17 171/71 H 95 01/15/19 01:46 83 22 155/91 H 98 01/15/19 00:55 85 20 175/97 H 97 01/15/19 00:32 36.6 C 83 18 177/100 H 96 Diagnostic Findings MR brain MS wo/w con CLINICAL HISTORY: 63 years-old Female presenting with neurologic deficits possible stroke vs. MS per pcp, right eye pain radiating to the right ear, syncope, confusion, left arm weakness and facial droop. TECHNIQUE: Multisequence, multiplanar MR imaging of the brain was performed before and after the administration of intravenous contrast. IV contrast: 11.7 mL of Gadavist. COMPARISON: CT head performed earlier the same day. FINDINGS: Localizer images: Unremarkable. Bone marrow signal intensity within the calvarium within normal limits. Bilateral elem lenses are absent. Normal midline sagittal structures. Ventricles and sulci normal in size. No mass effect or midline shift. No restricted diffusion or hemorrhage. Numerous (over 20) small to punctate T-2/flair hyperintense foci within periventricular and subcortical white matter predominantly of the frontal lobes. These largely spare the corpus callosum. No associated restricted diffusion or enhancement. No abnormal parenchymal enhancement. No extra-axial fluid collection. T2 skull base flow voids preserved. IMPRESSION: 1. Numerous small to punctate nonspecific T2/FLAIR hyperintense lesions in the periventricular and subcortical frontal lobe white matter. No associated res tricted diffusion or enhancement. These could represent demyelinating disease among other etiologies. 2. No acute intracranial pathology. Electronically signed by: Ravinder De La Fuente M.D. 01/15/2019 8:52 AM PG Care Time/CCT Total # of Minutes Spent Total Time Spent with Patient: Total time spent is greater than 50% in coordination of care (as documented) at patient's floor/unit and/or counseling patient: (1) Syncope Syncope type: unspecified Qualified Code(s): R55 - Syncope and collapse
[2019-01-15 11:37] LABS: Estimated Average Glucose 123 mg/dl; Hemoglobin A1C 5.9 % (4.5-5.6)
[2019-01-15] MEDS ORDERED: STROKE PATIENT DISCHARGE STA (16:57)
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
== END 2019-01-15 18:07 | disposition home or self-care (01) ==
LOC: ED 00:28 → 2N 00:28 → SUATTDRO 03:27 → 2N 03:58

== ENCOUNTER 2020-11-05 06:26 | Observation (INO) ==
--- NOTE | 2020-10-15 15:33 | PAT Medication Instructions ---
Medication Instructions Date of Service October 15, 2020 Home Medications Medication Instructions Recorded fluticasone propionate 220 2 puff INHALATION Q12H #12 g 01/07/20 mcg/actuation HFA aerosol inhaler Lift Chair 1 ea .ROUTE ONCE #1 ea 03/25/20 levothyroxine 150 mcg tablet 150 mcg PO DAILY #90 tab 08/06/20 tramadol 50 mg tablet 100 mg PO BID PRN #120 tab 10/03/20 acetaminophen [Tylenol Arthritis Pain] 650 mg PO BIDM cyanocobalamin (vitamin B-12) 1,000 mcg tablet 1,000 mcg PO QAM niacin 500 mg capsule 500 mg PO HS aspirin 81 mg tablet,delayed release 81 mg PO QPM fluticasone propionate 220 mcg/actuation HFA aerosol inhaler 2 puff INHALATION Q12H levothyroxine 150 mcg tablet 150 mcg PO DAILY ipratropium-albuterol [Combivent Respimat] 1 puff INHALATION QID PRN naproxen sodium [Aleve] 220 mg PO BID PRN tramadol 50 mg tablet 100 mg PO BID PRN ASK your surgeon for instructions naproxen sodium [Aleve] 220 mg PO BID PRN STOP taking 48 hours before surgery niacin 500 mg capsule 500 mg PO HS DO NOT take the morning of surgery cyanocobalamin (vitamin B-12) 1,000 mcg tablet 1,000 mcg PO QAM Take morning of surgery With a small sip of water, OTHERWISE NOTHING TO EAT OR DRINK AFTER MIDNIGHT: acetaminophen [Tylenol Arthritis Pain] 650 mg PO BIDM (okay to take up to 4 hours prior to surgery if needed) fluticasone propionate 220 mcg/actuation HFA aerosol inhaler 2 puff INHALATION Q12H levothyroxine 150 mcg tablet 150 mcg PO DAILY ipratropium-albuterol [Combivent Respimat] 1 puff INHALATION QID PRN (if needed) tramadol 50 mg tablet 100 mg PO BID PRN (okay to take up to 4 hours prior to surgery if needed) Take evening before surgery acetaminophen [Tylenol Arthritis Pain] 650 mg PO BIDM aspirin 81 mg tablet,delayed release 81 mg PO QPM (unless surgeon directs otherwise) fluticasone propionate 220 mcg/actuation HFA aerosol inhaler 2 puff INHALATION Q12H ipratropium-albuterol [Combivent Respimat] 1 puff INHALATION QID PRN (if needed) tramadol 50 mg tablet 100 mg PO BID PRN (if needed) Other Notes If you have any questions please call us at [phone] or [phone] or [phone] or [phone]
--- NOTE | 2020-10-17 13:58 | Anesthesiology Consultation ---
Date of Service October 17, 2020 Assessment & Plan (1) Encounter for pre-operative examination: COVID Status: As of 10/17 assessment, patient denies travel to endemic area, known exposure/sick contacts, or symptoms of COVID19. Patient advised to adhere to social distancing guidelines, wear a mask in public and avoid large crowds or unnecessary travel in the 2 weeks leading up to surgery. Preoperative COVID19 testing to be completed prior to surgery per surgeon's arrangements (11/03). Patient encouraged to be extra cautious/conscientious with COVID precautions between COVID testing and surgery. Pt is not vaccinated for COVID-19. PCP Clearance 08/05/20 = "no medical contraindication to upcoming planned left TKA October 2020...cont current meds...reviewed recent labs with pt, stable and acceptable...f/u in 6 months after labs...pt under great deal of stress with left knee pain, jesus effect to her body habitus and falling and anxiety over all of this. will hopefully improve after TKA." Likely difficult SAB. SAB successful with 2014 TKA (no issues noted on record), but patient has gained >40 kilos since then. Egg allergy noted -- patient received propofol with 2014 TKA with no issues. Chart Review Chart Review: Acceptable Risk for Surgery and Patient seen in Pre Admission Testing Teaching & Discussion Instructed NPO after midnight before surgery, except medications with 15 cc of water. Medication instructions provided according to the PAT guidelines. History Surgery Operation Date: 11/05/20 07:00 Proposed Procedures p Left Total Knee Arthroplasty with Ultra Compartment Poly - Manav Gertrude Srivastava MD Height/Weight Height: 5 ft 4 in Weight: 183.2 kg Allergies Allergy/AdvReac Type Severity Reaction Status Date / Time egg Allergy Intermediate HICCUPS Verified 10/03/20 14:41 AND EARS SWELLED A CHILD Vttoooe-Uxp-Tyi Reductase AdvReac Mild NAUSEA/VOMI Verified 10/03/20 14:41 Inhibitor TING Medications Home Medications Medication Instructions Recorded Confirmed Last Taken acetaminophen [Tylenol Arthritis 650 mg PO BIDM 01/15/19 10/03/20 01/14/19 Pain] cyanocobalamin (vitamin B-12) 1,000 mcg PO QAM 01/17/19 10/03/20 Unknown 1,000 mcg tablet niacin 500 mg capsule 500 mg PO HS 01/17/19 10/03/20 Unknown aspirin 81 mg tablet,delayed 81 mg PO QPM 01/26/19 10/03/20 Unknown release fluticasone propionate 220 2 puff INHALATION Q12H #12 g 01/07/20 10/03/20 Unknown mcg/actuation HFA aerosol inhaler Lift Chair 1 ea .ROUTE ONCE #1 ea 03/25/20 08/06/20 Unknown levothyroxine 150 mcg tablet 150 mcg PO DAILY #90 tab 08/06/20 10/03/20 Unknown ipratropium-albuterol [Combivent 1 puff INHALATION QID PRN 10/03/20 10/03/20 Unknown Respimat] naproxen sodium [Aleve] 220 mg PO BID PRN 10/03/20 10/03/20 Unknown tramadol 50 mg tablet 100 mg PO BID PRN #120 tab 10/03/20 Unknown Past Medical History Medical History Asthma BID FLOVENT. HAS NOT USED RESCUE INHALER FOR A LONG TIME Fibromyalgia GERD (gastroesophageal reflux disease) History of anemia Hyperlipidemia Hypothyroidism Morbid obesity Osteoarthritis Overactive bladder Syncope 2018, passed out, had full workup for TIA/CVA but was ruled out. 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) Past Family History Family History Mother Dementia Hypertension Father , in his 60s of an [place] Coronary heart disease Myocardial infarction Hypertension Family/Other Cancer Nephew Brother Family history of diabetes mellitus Other No family history of adverse response to anesthesia Denies family history of Ovarian cancer Prostate cancer Breast cancer Colorectal cancer Past Surgical History Surgical History H/O lumbar discectomy History of appendectomy History of cataract surgery RT/LEFT History of right knee joint replacement History of temporal artery biopsy (~01/17/19) RT History of tooth extraction S/P laparoscopic cholecystectomy (~2013) Past Anesthesia History No Family Hx of Anesthesia Complications Facial swelling after lumbar discectomy for 1-2 days after surgery but felt likely 2/2 positioning intraoperatively, as this did not occur with any other surgeries. History of PONV No Hx of PONV and Hx of Motion Sickness Social History Smoking Status: Never smoker Do You Dip or Chew Tobacco: No Hx Alcohol Use: Yes alcohol intake frequency: holidays/special occasions only (few times per year) Hx Substance Use: No Review of Systems Pt denies any recent chest pain, shortness of breath, palpitations, cough, fever, URI, or uncontrolled acid reflux. Physical Exam Vital Signs BP: 141/62 (done on pt's L forearm due to body habitus) P: 85bpm SPO2: 97% RA T: 98.9 F R: 15 Constitutional + morbidly obese ENMT Mouth: + dentures (upper only) and + edentulous Thyromental Distance: > or= 3.5 Finger Breadths Mallampati Class: II Neck + short neck; neck extension not limited Respiratory normal respiratory effort, lungs clear to auscultation Cardiovascular Rate/Rhythm: regular rate and regular rhythm Heart Sounds: + murmur (I/ systolic) Extremities: + edema (2+ nonpitting edema B/L ankles) Lab Results Anesthesia Preop Results Results Anesthesia Widget: WBC 8.69 K/uL (4.8-10.8) 10/17/20 Hgb 11.2 g/dL (12.0-16.0) L 10/17/20 Hct 35.6 % (37-47) L 10/17/20 Plt 312 K/uL (130-400) 10/17/20 Na 141 mmol/L (136-145) 10/17/20 K 4.8 mmol/L (3.5-5.1) 10/17/20 Cl 109 mmol/L (98-107) H 10/17/20 CO2 29 mmol/L (21-32) 10/17/20 BUN 19 mg/dl (7-18) H 10/17/20 Creat 1.15 mg/dl (0.6-1.2) 10/17/20 Glucose Level 104 mg/dl (70-99) H 10/17/20 PT 10.3 Seconds (9.0-12.0) 10/17/20 PTT 26.0 Seconds (21.0-31.0) 10/17/20 INR 1.0 (0.9-1.1) 10/17/20 Urine Color Yellow 10/17/20 Urine Appearance Clear (Clear) 10/17/20 Urine pH 6.5 (4.5-7.5) 10/17/20 Urine Specific Winner 1.014 (1.000-1.030) 10/17/20 Urine Protein Negative (Negative) 10/17/20 Urine Glucose (UA) Negative (Negative) 10/17/20 Urine Ketones Negative (Negative) 10/17/20 Urine Blood Negative (Negative) 10/17/20 Urine Nitrite Negative (Negative) 10/17/20 Urine Bilirubin Negative (Negative) 10/17/20 Urine Urobilinogen Negative (Negative) 10/17/20 Urine Leukocyte Esterase Negative (Negative) 10/17/20 Blood Type A Positive 10/17/20 Antibody Screen NEGATIVE 10/17/20 Testing Electrocardiogram Date: 10/17/20 Sinus rhythm at 80 bpm with premature supraventricular complexes. Nonspecific interventricular conduction delay. Compared with EKG of 1919, premature supraventricular complexes are now present and nonspecific intraventricular conduction delay has replaced incomplete left bundle branch block. QRS axis has shifted right. Chest X-Ray Date: 10/17/20 FINDINGS: PA and lateral chest radiographs are compared to study dated 07/05/2014. The examination is degraded by large body habitus. The heart appears enlarged noting atherosclerotic calcification of the thoracic aorta. The pulmonary vasculature is noncongested. There is bibasilar atelectasis. No airspace consolidation or pleural effusion is identified. There is no pneumothorax. The bony thorax appears intact. Cholecystectomy clips are noted in the right upper quadrant. IMPRESSION: Cardiomegaly with no active disease in the chest. Echocardiogram Date: 01/16/19 EF: 55-60% Normal LV size and systolic function. No regional wall motion abnormalities visualized. Severe concentric LVH. No visualized right to left interatrial shunt following agitated saline injection (suboptimal image quality). Possible PFO with [id number] shunt noted on color Doppler. The left atrium is mildly dilated. No significant valvular abnormalities visualized. Normal estimated RVSP at 32 mmHg. Technically difficult study.
[~2020-11-05 06:26] MED LIST changes: -ASPI81TA28 PO; -IPRA1AER2 INH; -LEVO150T9 PO; +LR 500ML BOLUS, THEN 15ML/HR IV SCH; +LR 60ML/HR IV SCH; -MECL1TAB42 PO; -MOME220A INH; -NIAC1TAB52 PO; +ROPIVACAINE 0.5% HCL/PF 150 MG, BUPIVACAINE 0.75% MPF 20 ML, EPINEPHrine 0.15 MG, Ketor... INFIL SCH; +TRANEXAMIC ACID 1,000 MG **IV Pre-op IV SCH
--- NOTE | 2020-11-05 06:27 | History & Physical Bridge Note ---
Date of Service November 05, 2020 History & Physical Bridge Note I have examined the patient, reviewed the History & Physical and in the interval since the performance of the History & Physical I have noted the following changes of clinical significance: consent obtained/site verified/covid screen negative.no changes noted
[2020-11-05] MEDS ORDERED: DEXAMETHASONE SOD INJ 4 MG/ML VIAL ONE (06:31)
[2020-11-05] MEDS ORDERED: BUPIVACAINE 0.5 % 5 MG/1 ML PF 10ML VIAL ONE (06:31)
[2020-11-05] MEDS ORDERED: EPINEPHrine INJ 1 MG/ML AMP ONE (06:31)
[2020-11-05] MEDS ORDERED: BUPIVACAINE 0.25% 30 ML VIAL ONE (06:31)
[2020-11-05] MEDS ORDERED: MIDAZOLAM HCL 1 MG/ML 2ML VIAL ONE ×2 (07:41→10:07)
[2020-11-05] MEDS ORDERED: fentaNYL citrate 100 MCG/2 ML VIAL ONE ×2 (07:41→09:50)
[2020-11-05] MEDS ORDERED: ATROPINE SULFATE 0.1 MG/ML 10ML SYR IV PRN (08:44)
[2020-11-05] MEDS ORDERED: ONDANSETRON INJ 2 MG/ML 2 ML VIAL IV PRN ×2 (08:44→12:43)
[2020-11-05] MEDS ORDERED: fentaNYL citrate 100 MCG/2 ML VIAL IV PRN (08:44)
[2020-11-05] MEDS ORDERED: ePHEDrine sulfate 50 MG/ML AMP IV PRN (08:44)
[2020-11-05] MEDS ORDERED: ORTHO JOINT ANESTHETIC ONE (08:53)
[2020-11-05] MEDS ORDERED: PROPOFOL IV EMULSION 10 MG/ML 20 ML VIAL IV ONE ×3 (10:03→10:32)
[2020-11-05] MEDS ORDERED: KETAMINE 50 MG/5 ML SYRINGE ONE (10:08)
--- NOTE | 2020-11-05 11:35 | Post Operative Brief Note ---
Immediate Post Op Note v1 Date of Surgery November 05, 2020 Pre & Post Diagnosis Operation Date: 11/05/20 08:50 Pre-Op Diagnosis: Left Knee Osteoarthritis with Valgus Deformity Post-Op Diagnosis: Left Knee Osteoarthritis with Valgus Deformity I identified the patient and participated in the time-out.: Yes Procedure Operation Date: 11/05/20 08:50 Actual Procedures p Left Total Knee Arthroplasty with Ultra Compartment Poly(Left) - Manav Srivastava MD Surgeon Manav Srivastava MD [employer] Le[employer] Sales [facility] Blood Loss 200 Findings Consistent with Post-Op Diagnosis Drains Hemovac Drain
--- NOTE | 2020-11-05 11:50 | Operative Report ---
Post Operative Report Pre & Post Diagnosis Operation Date: 11/05/20 08:50 Pre-Op Diagnosis: Left Knee Osteoarthritis with Valgus Deformity Post-Op Diagnosis: Left Knee Osteoarthritis with Valgus Deformity I identified the patient and participated in the time-out.: Yes Procedure Operation Date: 11/05/20 08:50 Actual Procedures p Left Total Knee Arthroplasty with Ultra Compartment Poly(Left) - Manav Srivastava MD Surgeon GABBIE Srivastava MD Combination Saw Operator Meseret FOREMAN Estimated Blood Loss 200 Findings Consistent with Post-Op Diagnosis Specimens see operative report Drains hemovac x 2 left thigh Complications none Disposition Accompanied Patient To Recovery: Yes Disposition: Recovery Room Indications This 65-year-old female presented to the office with complaints of intractable left knee pain. She had tried conservative care measures, including assistive devices, without improvement. She elected to proceed with surgical intervention after being educated about potential risks and outcomes. Preoperative imaging was obtained. She has a history of previous right total knee arthroplasty and has done well with it. She elects to do the same on the left. Description of Procedure Patient was administered a spinal anesthetic and then taken to the operating room where she was given sedation. She was prepped and draped in the usual sterile fashion. Please see Dr. Srivastava's operative report for specifics of the procedure. I was present for the entire case from initial patient positioning through final wound closure. Assistance was provided in tissue retraction, hemostasis, trial implant placement, final implant placement, and final wound closure. Patient was taken to the recovery room in satisfactory c ondition. I attest to the content of the Intraoperative Record and any orders documented therein. Any exceptions are noted below.
--- NOTE | 2020-11-05 11:53 | Operative Report (OR) ---
DATE OF PROCEDURE: 11/05/2020 PREOPERATIVE DIAGNOSES: Osteoarthritis with valgus deformity, left knee; chronic subluxated patella. POSTOPERATIVE DIAGNOSES: Osteoarthritis with valgus deformity, left knee; chronic subluxated patella . OPERATION PERFORMED: Cemented left total knee replacement. PERIOPERATIVE SITUATION: A morbidly obese female who has actually put on over 40 kg in the last sever al years following her previous replacement on the opposite side, now presents with end-stage disease . Her patella is chronically dislocated. She is in excruciating pain and there really is no other o ption. SUMMARY OF IMPLANTS: Size 4 left narrow femur, size 4 mobile bearing tray tibia, size 35 patella, 4 x 10 insert posterior cruciate substituting, 2 bags of Palacos G cement. ESTIMATED BLOOD LOSS: Roughly 150-200 mL. CRYSTALLOID: Per anesthesia. PATHOLOGY: Pending on bone. DEEP VEIN THROMBOSIS PROPHYLAXIS: Per protocol. DESCRIPTION OF PROCEDURE: After the patient was properly identified, site verified, consent verified , massive cleaning of the wound and all the crevices performed. The leg was prepped and draped in th e usual routine fashion. The tourniquet was inflated to 300 mmHg after exsanguination of limb with a rubber Esmarch bandage for a total of roughly 75 minutes. Midline exposure was utilized. Parapatel lar arthrotomy performed. Synovectomy completed. Huge osteophytes were resected. The entire trochl ea was completely flat and osteophytic. The patella was completely chronically subluxated, had 2 larg e pieces that were broken off as well as in the soft tissue. These were excised, preserving the exte nsor mechanism. The patella was resected leaving 16 mm. The knee was then flexed after the lateral retinaculum had to be released. This allowed eversion of the patella. Once the knee was flexed, the osteotome was used to open up the intercondylar notch, w hich was obliterated. The PCL and ACL were found. Distal femoral drill hole was then made, distal f emur then resected for 12 mm. The cruciates were resected. The tibia was then subluxated. The menis ci were resected. The medial soft tissue was intact, but obviously stretched based on the valgus al ignment, it was minimally released. The tibia was resected 4 mm. The extension gap was excellent. The box cut was then made, and a size 4 narrow fit well. The size 4 was noted to be the best size and the anterior, posterior, condylar and chamfer cuts were made. That was prior to the box cut. Once the box cut was made, a size 4 narrow fit well. Tibia wa s then subluxated and the size 4 tibial tray broached and reamed. An appropriate spacer was carried out. The 10 was just about right; the 12.5 was too tight. The patella was then reamed for its seati ng holes and the patellar button tracked well. Orthomix was injected all about the knee. Trial impl ants were then removed and irrigated copiously with Betadine Pulsavac, and then the permanent cemente d into position, tibia, femur and patella in that order. After 15 minutes, the tourniquet was deflat ed. There were minor bleeding points controlled with electrocautery. Most of the bleeding was occur ring because of the venous tourniquet. The wound was then irrigated one final time after the permanent liner was seated and the knee reduced . The patella tracked well. The medial retinacular parapatellar arthrotomy was closed. The lateral was left open. Deep drains were placed. The subcutaneous layer, which was several inches thick, wa s closed in multiple layers using #1 Vicryl and 2-0 Vicryl as well as stainless steel clips. Appropr iate dressing applied including Abhinav cotton and a knee immobilizer. The patient will be full weightbearing, but she will not bend her knee. When she is up ambulating, she will have the knee imm obilizer on for 4 weeks based on the size of the patient. She will start a range of motion after the wound is calm, roughly in 10-14 days. The patient was transferred to the recovery room in satisfact ory condition, having tolerated the procedure well. Job ID: [id number]
[2020-11-05] MEDS ORDERED: HYDROmorphone INJ 1 MG/ML SYRINGE ONE (11:54)
[2020-11-05] MEDS: HYDROmorphone INJ 2 MG/ML SYR/VIAL IV PRN ×2 (11:55→12:00)
[2020-11-05] MEDS ORDERED: HYDROmorphone INJ 0.5 MG/0.5 ML SYR IV STA (12:01)
--- NOTE | 2020-11-05 12:07 | XRay Report ---
XR knee LT 1 or 2V routine HISTORY: 65 years-old Female S/P L TKA left knee total joint arthroplasty COMPARISON: Knee radiographs 05/28/2019 TECHNIQUE: 3 views of the left knee FINDINGS: Left knee total joint arthroplasty and patella resurfacing. Anterior midline skin shavon are noted a long with surgical drainage catheter, expected postoperative soft tissue swelling with deep tissue ai r. No acute fracture, alignment or unexpected opaque foreign body. IMPRESSION: Left knee total joint arthroplasty with expected postoperative changes. ACT 112: Negative or not required by law. The above report was generated using voice recognition software. It may contain grammatical, syntax o r spelling errors. Electronically signed by: Scout Maddox M.D. 11/05/2020 12:05 PM
--- NOTE | 2020-11-05 12:14 | Anesthesiology Progress Note ---
Date of Service November 05, 2020 Anesthesia Post Procedure Vital Signs Vital Signs: Temp Pulse Pulse Resp BP Pulse Ox 11/05/20 12:10 67 12 163/91 H 100 11/05/20 12:00 74 16 166/82 H 100 11/05/20 11:50 66 24 163/71 H 100 11/05/20 11:43 36.1 C L 73 12 142/80 H 100 11/05/20 06:55 36.9 C 88 20 157/81 H 97 Pain Intensity Back: Pain Intensity: 2 Transfer of Care Handoff Completed per policy Notes Mental Status: alert / awake / arousable Patient Amnestic to Procedure: Yes Nausea / Vomiting: adequately controlled Pain: adequately controlled Airway Patency, RR, SpO2: stable & adequate BP & HR: stable & adequate Hydration State: stable & adequate Anesthetic Complications: no major complications apparent
[2020-11-05] MEDS ORDERED: METOCLOPRAMIDE HCL INJ 5 MG/ML 2 ML VIAL IV PRN (12:43)
[2020-11-05] MEDS ORDERED: MAGNESIUM HYDROXIDE SUSP 30 ML UDC PO PRN (12:43)
[2020-11-05] MEDS ORDERED: NALOXONE HCL 0.4 MG/1 ML VIAL/CARP IV PRN (12:43)
[2020-11-05] MEDS ORDERED: IPRATROPIUM BROMIDE/ALBUTEROL respimat INH INH PRN (12:43)
[2020-11-05] MEDS ORDERED: HYDROmorphone INJ 0.5 MG/0.5 ML SYR IV PRN (12:43)
[2020-11-05] MEDS ORDERED: traMADol HCL 50 MG TABLET PO PRN (12:43)
[2020-11-05] MEDS ORDERED: bisacodyL 10 MG SUPP PR PRN (12:43)
[2020-11-05] MEDS ORDERED: ALUMINUM/MAGNESIUM SUSP 30 ML UDC PO PRN (12:43)
[2020-11-05] MEDS ORDERED: SODIUM CHLORIDE 0.9% 1000ML 1,000 ML IV SCH (12:43)
--- NOTE | 2020-11-05 12:49 | Discharge Summary (DS) ---
DATE OF ADMISSION: 11/05/2020 DATE OF DISCHARGE: Unclear. CHIEF COMPLAINT: Left knee pain. HISTORY OF PRESENT ILLNESS: The patient underwent elective left total knee replacement. The patient is morbidly obese. Apparently has put on 30 kilograms since her last total knee replacement. PAST MEDICAL HISTORY: Remarkable for hypercholesterolemia, asthma, hypothyroidism, osteoarthritis, morbid obesity, GERD, history of cataracts, depression, anxiety, and fibromyalgia. PREVIOUS SURGERIES: Include appendectomy, lumbar diskectomy, bilateral cataract surgery, cholecystectomy, oral surgery, temporal artery biopsy and total knee replacement on the right in 2014. FAMILY HISTORY: Remarkable for dementia, hypertension, heart disease including coronary artery disease and DE in her father, hypertension and cancer. ALLERGIES: STATINS, unclear METALS. SOCIAL HISTORY: Reveals the patient is unemployed. No tobacco or alcohol use. She is single. 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 PREADMISSION MEDICATIONS: Include Tylenol Arthritis, Combivent inhaler, aspirin 81 mg daily, vitamin B12, levothyroxine 150 mcg daily, meclizine 25 mg p.o. t.i.d. p.r.n., niacin 500 mg p.o. at bedtime, tramadol 2 tablets q.12 hours p.r.n. for pain, but on that for a decade. REVIEW OF SYSTEMS: Noncontributory. Postop x-rays look excellent. ASSESSMENT: Status post left total knee replacement. Continue with postoperative care pathway. The patient's size may preclude her from being as nimble and as dischargeable in 23 hours as most patients. As such, we will need to follow this with case management. Hopefully, that will not be the case and we will be able to get her home. Due to her size, we will keep her walking in a knee immobilizer for roughly 4 weeks. We will not start her range of motion until she is after 10 days due to the thickness of the subcutaneous layer, the need for drains and try to minimize the risk for infection. Job ID: [id number] [facility]
[2020-11-05] MEDS ORDERED: Albuterol HFA 8 GM Inhaler (Combivent Respimat P&T Subs) INH PRN (13:18)
[2020-11-05] MEDS ORDERED: Ipratropium HFA Inhaler (Combivent Respimat P&T Subs) INH PRN (13:19)
--- NOTE | 2020-11-05 13:22 | Progress Notes ---
DATE OF SERVICE: 11/05/2020 SUBJECTIVE: Postop check status post left total knee replacement. The patient is complaining of some pain. Otherwise, there are no major issues. She denies any chest pain, shortness of breath, fever, chills, nausea, vomiting or headache. She does have some back pain. She is a very large, high BMI patient. OBJECTIVE: Neurovascular check of femoral sciatic nerve was normal. Wound dressing is clean, dry and intact. Postop x-ray looks excellent. ASSESSMENT: Status post left total knee replacement in a very high body mass index patient. PLAN: At this point in time, hospital course has been uneventful. She will require significant pain medication as she was on chronic tramadol for decades. Case management to follow regarding appropriate home services versus placement. Her private insurance will not permit a rehab facility. Continue care management plan. Job ID: [id number] afternoon rounds can do a SLR and pain is managed. eating and drinking well so I will order saline lock IV. DOMONIQUE
[2020-11-05] MEDS ORDERED: ORTHO WARFARIN NOMOGRAM SCH (14:00)
[2020-11-05] MEDS: KETOROLAC TROMETHAMINE 15 MG/ML VIAL IV SCH ×2 (14:02→20:14)
[2020-11-05] MEDS: ACETAMINOPHEN 500 MG TAB PO SCH ×2 (14:02→21:52)
[2020-11-05] MEDS: ceFAZolin 2000MG 2,000 MG/15 ML SYR IV SCH (15:42)
[2020-11-05] MEDS: ASCORBIC ACID 500 MG TAB PO SCH (15:58)
[2020-11-05] MEDS: FERROUS GLUCONATE 324 MG TAB PO SCH (15:59)
[2020-11-05] MEDS ORDERED: WARFARIN SOD 5 MG TAB PO SCH (16:00)
[2020-11-05] MEDS ORDERED: VANCOMYCIN HCL 2,500 MG in SODIUM CHLORIDE 0.9% 500 ML IV SCH (17:00)
[2020-11-05] MEDS ORDERED: TRANEXAMIC ACID / 0.7% NACL 1,000 MG/100 ML BAG IV SCH (18:00)
[2020-11-05] MEDS: DOCUSATE SODIUM 100 MG CAP PO SCH (20:15)
[2020-11-05] MEDS: ASPIRIN 81 MG ECTAB PO SCH (20:15)
[2020-11-05] MEDS: NIACIN EXTENDED REL 500 MG TABCR PO SCH (20:15)
[2020-11-05] MEDS: SENNA 8.6 MG TAB PO SCH (20:16)
[2020-11-06] MEDS: ceFAZolin 2000MG 2,000 MG/15 ML SYR IV SCH (00:42)
[2020-11-06] MEDS: KETOROLAC TROMETHAMINE 15 MG/ML VIAL IV SCH ×2 (01:05→07:28)
[2020-11-06] MEDS: diphenhydrAMINE 50 MG/ML VIAL IV PRN ×2 (01:05→08:47)
[2020-11-06] MEDS: oxyCODONE HCL IR 5 MG TAB (IMMEDIATE RELEASE) PO PRN ×2 (02:47→22:11)
[2020-11-06] MEDS: ACETAMINOPHEN 500 MG TAB PO SCH ×3 (05:48→22:09)
[2020-11-06] MEDS: LEVOTHYROXINE SODIUM 150 MCG TABLET PO SCH (05:48)
[2020-11-06 06:24] LABS: Hematocrit (blood only) 25.9 % (37-47); Mean Corpuscular Hemoglobin 26.9 pg (25-34); Mean Corpuscular Hgb Conc 30.9 g/dL (32-36); Mean Corpuscular Volume 87.2 fL (80-100); Mean Platelet Volume 12.5 fL (7.4-10.4); Platelet Count 254 K/uL (130-400); RDW Coefficient of Variation 16.7 % (11.5-14.5); RDW Standard Deviation 52.8 fL (36.4-46.3); Red Blood Count 2.97 M/uL (4.2-5.4); White Blood Count 12.75 K/uL (4.8-10.8)
[2020-11-06] MEDS ORDERED: SODIUM CHLORIDE 0.9% 250 ML IV PRN ×2 (06:27→06:37)
[2020-11-06] MEDS ORDERED: ACETAMINOPHEN 500 MG TAB PO PRN (06:29)
[2020-11-06 06:34] LABS: INR 1.1 (0.9-1.1); Prothrombin Time 10.9 Seconds (9.0-12.0)
[2020-11-06 06:55] LABS: BUN Creatinine Ratio 23.4 (10-20); Creatinine Clr Calc Pharmacy 66.6 ml/min; Est GFR (African American) 50.1 ml/min; Est GFR (Non-African American) 43.2 ml/min; Potassium 4.4 mmol/L (3.5-5.1)
[2020-11-06] MEDS: ASCORBIC ACID 500 MG TAB PO SCH ×2 (07:27→15:29)
[2020-11-06] MEDS: FERROUS GLUCONATE 324 MG TAB PO SCH ×2 (07:28→15:29)
[2020-11-06] MEDS: CYANOCOBALAMIN 500 MCG TABLET (VITAMIN B-12) PO SCH (07:28)
[2020-11-06] MEDS: DOCUSATE SODIUM 100 MG CAP PO SCH ×2 (07:29→22:11)
[2020-11-06] MEDS: MULTIVITAMIN TAB PO SCH (07:29)
[2020-11-06] MEDS: FLUTICASONE FUROATE 200MCG 14 PUFFS/INHALER INH SCH (07:29)
--- NOTE | 2020-11-06 07:59 | Progress Notes ---
SUBJECTIVE: Postop day #1 status post left total knee replacement. High BMI patient. She notes that she is doing reasonably well with pain. She does get a little bit lightheaded and feels warm when she gets up to try to walk around. She is quite large. She at this point in time denies any chest pain, shortness of breath, fever, chills, nausea, vomiting, or headache. OBJECTIVE: VITAL SIGNS: Stable. She is afebrile. H and H has dropped significantly with acute blood loss anemia. Her hematocrit is at 25.9, hemoglobin at 8. PT/INR pending. Electrolytes pending. Drain is not functioning purely as there is significant proximal soilage of the dressing indicating that there is a leak around the tubes. As a result, it is removed. This was done to minimize risk for infection. Neurovascular check, femoral sciatic nerve is normal. Calves nontender. Can do a quad set and barely lift leg off the bed. ASSESSMENT AND PLAN: Doing reasonably well. However, her size creates issues, particularly with mobility and her getting some back pain lying in bed. She needs to be more mobile. Her H and H is borderline. Due to her symptoms of feeling lightheadedness and hot when she gets to stand up, I will order her to be transfused a unit of blood. This will hopefully eliminate those symptoms and increase her mobility. She will be working with case management to find potential placement. We will continue to follow that every several hours. We will do a new dressing change later today. Job ID: [id number] [facility]
[2020-11-06] MEDS ORDERED: dexAMETHasone 10 MG in SYRINGE 0 ML IV SCH (08:00)
--- NOTE | 2020-11-06 08:30 | Anesthesiology Progress Note ---
Date of Service November 06, 2020 Anesthesia Post Procedure Vital Signs Vital Signs: Temp Pulse Pulse Resp BP BP Pulse Ox 11/06/20 07:23 36.7 C 76 18 145/68 H 96 11/06/20 03:12 36.8 C 74 16 108/60 94 11/05/20 23:03 36.8 C 83 16 114/55 L 92 11/05/20 22:24 75 18 95 11/05/20 19:26 37.2 C 83 16 138/72 94 11/05/20 15:44 36.5 C 88 18 123/73 96 11/05/20 14:48 36.6 C 85 17 151/78 H 97 11/05/20 13:40 36.4 C L 86 16 167/81 H 98 11/05/20 13:08 36.6 C 80 20 176/90 H 93 11/05/20 12:45 36.7 C 72 17 165/85 H 2 L 11/05/20 12:20 36.3 C L 74 24 156/95 H 100 11/05/20 12:10 67 12 163/91 H 100 11/05/20 12:00 74 16 166/82 H 100 11/05/20 11:50 66 24 163/71 H 100 11/05/20 11:43 36.1 C L 73 12 142/80 H 100 Pain Intensity Back: Pain Intensity: 0 Left Knee: Pain Intensity: 0 Notes Mental Status: alert / awake / arousable and participated in evaluation Patient Amnestic to Procedure: Yes Nausea / Vomiting: adequately controlled Pain: adequately controlled Airway Patency, RR, SpO2: stable & adequate BP & HR: stable & adequate Hydration State: stable & adequate Neuraxial Anesthesia: was administered and sensory block resolved Anesthetic Complications: no major complications apparent
--- NOTE | 2020-11-06 08:37 | Orthopedic Progress Note ---
Date of Service November 06, 2020 Assessment & Plan (1) S/P total knee replacement using cement: Patient was seen in her room this morning. Dressing was changed by me. New dressing was applied using gauze, ABDs, Kerlex, and mothers cotton. Awaiting final disposition from social media editor and her insurance before completing her discharge instructions. She will need to follow-up in the office on Tuesday for a dressing change. She must use the knee immobilizer when weightbearing. She will need to use her walker. Blood transfusion will be completed this morning. Patient is symptomatic with position changes. Appointment for staple removal has been made for 2 weeks. Placement continues to be an issue as her authorization is pending with her insurance company and no decision has been made. She will likely require a second nights stay due to delay from her insurance company in rendering a decision on rehab coverage vs. SNF coverage. Admission and Anticipated Discharge Date Admission Date: November 05, 2020 Subjective Patient is seen in her room this morning. States she did not sleep much last night due to interruptions. She denies any chest pain, shortness of breath, nausea, or vomiting. She states her block is still in place. She has no knee pain. She is scheduled to receive a unit of blood this morning. Disposition has not been finalized, and is awaiting PT/OT notes to determine whether she can go to [facility] versus SNF. Her drain has already been pulled this morning. She does have saturation on her dressing both anterior and lateral. Review of Systems Review of Systems: unchanged from yesterday Physical Exam Physical Exam: General: Well-developed, well-nourished, elderly female, in no acute distress. Laying on the bed. Alert and oriented. Musculoskeletal: Patient has motor function of the ankle and toes. She is unable to lift her leg. She has saturation on her dressing. Upon removal, shavon are intact. Wound edges are well approximated. Mild ecchymosis. No visible edema. She does have some serous drainage from her drain portholes as well as the anterior incision line. No active bleeding. Neurologic: Gross sensation is intact across the left leg by soft touch, but is blunted in areas due to her block. Peripheral pulses are 2+. Results & Data ([facility]) Vital Signs (Past 12 Hours) Vital Signs Temp Pulse Resp BP Pulse Ox 11/06/20 07:23 36.7 C 76 18 145/68 H 96 11/06/20 03:12 36.8 C 74 16 108/60 94 11/05/20 23:03 36.8 C 83 16 114/55 L 92 11/05/20 22:24 75 18 95 Laboratory Results CBC obtained today shows a white count of 12.75, hemoglobin 8.0, hematocrit 25.9. Potassium 4.4, sodium 139. Chloride 109. BUN is 30. Creatinine 1.28. Glucose 147. Calcium low at 8.0. INR is 1.1.
[2020-11-06] MEDS ORDERED: ORTHO WARFARIN NOMOGRAM SCH (14:00)
[2020-11-06] MEDS ORDERED: WARFARIN SOD 5 MG TAB PO SCH (16:00)
[2020-11-06] MEDS: NIACIN EXTENDED REL 500 MG TABCR PO SCH (22:07)
[2020-11-06] MEDS: ASPIRIN 81 MG ECTAB PO SCH (22:08)
[2020-11-06] MEDS: SENNA 8.6 MG TAB PO SCH (22:08)
[2020-11-07] MEDS: ACETAMINOPHEN 500 MG TAB PO SCH (05:33)
[2020-11-07] MEDS: LEVOTHYROXINE SODIUM 150 MCG TABLET PO SCH (05:33)
[2020-11-07 06:19] LABS: INR 1.2 (0.9-1.1); Prothrombin Time 11.6 Seconds (9.0-12.0)
[2020-11-07] MEDS: ASCORBIC ACID 500 MG TAB PO SCH (07:50)
[2020-11-07] MEDS: CYANOCOBALAMIN 500 MCG TABLET (VITAMIN B-12) PO SCH (07:50)
[2020-11-07] MEDS: FERROUS GLUCONATE 324 MG TAB PO SCH (07:50)
[2020-11-07] MEDS: MULTIVITAMIN TAB PO SCH (07:51)
[2020-11-07] MEDS: FLUTICASONE FUROATE 200MCG 14 PUFFS/INHALER INH SCH (07:52)
[2020-11-07] MEDS: DOCUSATE SODIUM 100 MG CAP PO SCH (07:55)
--- NOTE | 2020-11-07 08:08 | Progress Notes ---
DATE: 11/07/2020 SUBJECTIVE: Postop check status post left total knee replacement in a high BMI, bariatric patient. Wound dressing is removed today. There is scant drainage. Neurovascular check, femoral sciatic nerv e is normal. Bam intact. Calf nontender. OBJECTIVE: Vital signs are stable. She is afebrile. She is not lightheaded anymore. She responded well to the unit of blood. INR is 1.2. Wound VAC dressing will be placed. Tubigrip placed. Stockings do not fit very well based on leg teresita ivy and size. PLAN: For discharge/placement today. Coumadin 4 mg. Keep INR at 1.8 to 2.0, do not get higher than 2.2. Job ID: [id number]
--- NOTE | 2020-11-07 08:15 | Discharge Summary (DS) ---
ADDENDUM DATE OF DISCHARGE: 11/07/2020. At this point in time, the patient's hospital course required 1 unit of blood for orthostatic changes . Dressed her wounds clean. Scant serous drainage. Neurovascular check femoral sciatic nerve is no rmal. INR is 1.2. Did not repeat H and H, it was not necessary. Vital signs were stable. ASSESSMENT: Overall doing well status post left total knee replacement. High BMI, bariatric patient. At this point in time, placed a wound VAC dressing for a week. Follow up in several days to a week in the office to get dressing change removal. This will require wound pressure based on the thickne ss of the subcutaneous envelope and the propensity for continued serous drainage. Keep INR around 2. 0, do not get any higher. Job ID: [id number]
[2020-11-07] MEDS ORDERED: WARFARIN SOD 4 MG TAB PO SCH (11:00)
== END 2020-11-07 12:53 ==
LOC: 3E 06:26 → ASU 06:26

== ENCOUNTER 2021-08-11 02:13 | Inpatient (IN) ==
[2021-08-11 02:46] LABS: Basophils # (auto) 0.09 K/uL (0-0.2); Basophils % (auto) 0.5 %; Eosinophils % (auto) 1.2 %; Hematocrit (blood only) 28.1 % (37-47); Hemoglobin 9.5 g/dL (12.0-16.0); Immature Granulocytes # (auto) 0.22 K/uL (0.00-0.02); Immature Granulocytes % (auto) 1.3 %; Lymphocytes # (auto) 1.49 K/uL (1.2-3.4); Lymphocytes % (auto) 8.8 %; Mean Corpuscular Hemoglobin 27.1 pg (25-34); Mean Corpuscular Hgb Conc 33.8 g/dL (32-36); Mean Corpuscular Volume 80.1 fL (80-100); Mean Platelet Volume 12.2 fL (7.4-10.4); Monocytes # (auto) 1.33 K/uL (0.11-0.59); Monocytes % (auto) 7.9 %; Neutrophils # (auto) 13.53 K/uL (1.4-6.5); Neutrophils % (auto) 80.3 %; Platelet Count 611 K/uL (130-400); RDW Coefficient of Variation 22.3 % (11.5-14.5); RDW Standard Deviation 58.3 fL (36.4-46.3); Red Blood Count 3.51 M/uL (4.2-5.4); White Blood Count 16.86 K/uL (4.8-10.8)
[2021-08-11 02:51] LABS: iSTAT Creatinine 1.3 mg/dl (0.6-1.3); iSTAT Hemoglobin 10.2 g/dl (12.0-16.0); iSTAT Ionized Calcium 1.13 mmol/l (1.12-1.32); iSTAT Potassium 3.5 mmol/L (3.3-5.0)
[2021-08-11 03:14] LABS: Potassium 3.4 mmol/L (3.5-5.1)
[2021-08-11 03:19] LABS: Albumin Globulin Ratio 1.1 (0.9-2); Albumin Level 3.2 gm/dl (3.4-5.0); Anisocytosis Present; Bilirubin,Total 40.2 mg/dl (0.2-1.0); Globulin 2.9 gm/dl (2.5-4.0); Target Cells 2+; Total Protein 6.1 gm/dl (6.0-8.3)
[2021-08-11] MEDS ORDERED: diphenhydrAMINE 50 MG/ML VIAL IV STA ×2 (03:58→12:35)
[2021-08-11 04:23] LABS: INR 1.8 (0.9-1.1)
[2021-08-11 04:29] LABS: Thyroid Stimulating Hormone 0.1 uIu/ml (0.300-4.500)
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
[2021-08-11 05:07] LABS: T4 Free Thyroxine 1.15 ng/dl (0.61-1.60)
--- NOTE | 2021-08-11 06:07 | Emergency Department Note ---
Impression & Plan [facility]atitis, [facility] NAME: KEVIN MANSFIELD AGE: 66 SEX: F ARRIVES VIA: Ambulance INFORMANT: Patient ED PROVIDER(S): Heavenly Santillan DO CHIEF COMPLAINT: Weakness and orange skin PLAN: Disposition: Admit to the [facility] Condition: Stable MEDICAL DECISION MAKING: This is a 66-year-old female patient who presents to the emergency department by EMS for increasing weakness, orange skin and itch. The patient had laboratory studies drawn by her PCP and was told that she had pancreatitis approximately 4 days ago. She became increasingly orange in color and had significant worsening of her skin itch. Triage Nursing notes reviewed and agree with them. Prior medical records reviewed Vital Signs: reviewed and remarkable for hypertension Differential diagnosis: Painless jaundice from a pancreatic mass; hepatitis, pancreatitis, cholangitis Diagnostics interpreted by me: ECG: Normal sinus rhythm at a rate of [address] segment elevation or signs of ischemia. There is no ectopy. Cardiac Monitoring: Normal sinus rhythm at 98 Laboratory studies: See below Imaging studies: As per stat rad CT abdomen and pelvis without contrast: 2.2 cm left adrenal adenoma, no follow- up is needed. The remaining solid organs are within normal limits. Cholecystectomy. Small hiatal hernia. Diverticulosis. No bowel obstruction. Nonvisualized appendix. However there are no secondary signs of acute appendicitis. No fracture. Addendum-no abnormalities are noted of the unenhanced pancreas or the peripancreatic fat. HPI: 66/F arrives for evaluation of skin and itch. Patient had noticed approximately 2 weeks ago that her skin was turning orange. She followed up with her PCP last week and they loraine blood and told her that she had pancreatitis. Patient has noticed a significant decrease in her appetite and i ncreased generalized weakness. Patient describes noemy colored stool and increased thirst. She became more concerned tonight because she noticed with swelling in her right foot. ROS: See above HPI for pertinent positives & negatives. A total of 10 systems reviewed and were otherwise negative. PAST MEDICAL HISTORY:See Below PAST SURGICAL HISTORY:Cholecystectomy, bilateral total knee replacements, appendectomy, cataract surgery, discectomy FAMILY HISTORY:See Below SOCIAL HISTORY:Patient lives alone HOME MEDICATIONS:See list ALLERGIES:See list VITALS:See Below PHYSICAL EXAMINATION: HEENT: Head - normocephalic and atraumatic. Pupils are equal, round, and reactive to light. Extraocular eye muscles are intact, and sclera are extremely icteric. Nose -dry nasal mucosa without discharge. Mouth -dry buccal mucosa. Oropharynx is nonerythematous and there is no tonsillar exudate or edema noted. Neck: Supple; no JVD or cervical lymphadenopathy Heart: Regular rate and rhythm. There is a normal S1 and S2 with no murmurs, clicks, or gallops appreciated. Lungs: Clear to auscultation bilaterally with no wheezes, rales, or rhonchi. Abdomen: Soft, completely nontender, nondistended, with good bowel sounds. There are no palpable pulsatile masses or hepatosplenomegaly. There is no guarding, rigidity, or rebound noted. Extremities: No evidence of cyanosis, clubbing, or edema. There are easily palpable peripheral pulses. Skin: Extreme jaundice warm and dry with poor turgor and no rashes. ED COURSE: Times/Reassessments: 0220: Patient was evaluated in room A11. Complete history and physical was performed. An IV lock was initiated and labs are drawn as above. A twelve-lead EKG was obtained as described above. An order was placed for continuous cardiac monitoring. The patient was in a normal sinus rhythm at a rate of 98. The patient went for CT scan of the abdomen/pelvis to rule out a pancreatic mass. I reviewed some of the laboratory studies with the patient and explained that she would require admission to the hospital for further evaluation and work-up. Heavenly Santillan DO Past Med/Surg History Medical History (Updated 08/11/21 @ 06:47 by Heavenly Santillan DO) Asthma BID FLOVENT. HAS NOT USED RESCUE INHALER FOR A LONG TIME Fibromyalgia GERD (gastroesophageal reflux disease) History of anemia Hyperlipidemia Hypothyroidism Morbid obesity Osteoarthritis Overactive bladder Syncope 2019, passed out, had full workup for TIA/CVA but was ruled out. Surgical History (Updated 04/30/21 @ 11:33 by KLAUS Hoff) H/O lumbar discectomy History of appendectomy History of cataract surgery RT/LEFT History of right knee joint replacement History of spinal surgery History of temporal artery biopsy (~01/17/19) RT History of tooth extraction S/P laparoscopic cholecystectomy (~2013) Family History Mother Dementia Hypertension Father , in his 60s of an [place] Coronary heart disease Myocardial infarction Hypertension Family/Other Cancer Nephew Brother Family history of diabetes mellitus Other No family history of adverse response to anesthesia Denies family history of Ovarian cancer Prostate cancer Breast cancer Colorectal cancer Social History Smoking Status: Never smoker Second Hand Exposure: No; Hx Alcohol Use: No Hx Substance Use: No Preferred Language: Czech Communication Ability: Effective Visual Impairment: Limited Hearing Ability: Normal Transformation Coach Required: No Beliefs That Will Affect Care: None marital status: Current Living Situation: Alone current occupational status: employed 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 as [employer] in 2013 Feels Safe at Home: Yes Childhood Exposure to Second-Hand Smoke: Yes caffeine: Yes (coke) during the past year weight has: remained stable Dental Care, Regularly: No Physical Activity Frequency: 1-2 Times per Week Seatbelt Use: always Sunscreen Use: Yes Assistive Devices: Brace/Splint/Immobilizer, Cane, Denture - Upper, Glasses and Walker Allergies Allergies Allergy/AdvReac Type Severity Reaction Status Date / Time egg Allergy Intermediate HICCUPS Verified 08/11/21 02:46 AND EARS SWELLED A CHILD Fegicao-STO-RtS Reductase AdvReac Mild NAUSEA/VOMI Verified 08/11/21 02:46 Inhibitor TING [Jkffqwo-Vzo-Wku Reductase Inhibitor] Home Meds Home Medications Medication Instructions Recorded Confirmed cyanocobalamin (vitamin B-12) 1,000 mcg PO QAM 01/17/19 08/11/21 1,000 mcg tablet aspirin 81 mg tablet,delayed 81 mg PO QPM 01/26/19 08/11/21 release (Adult Aspirin Regimen) ipratropium 20 mcg-albuterol 100 1 puff INHALATION QID PRN 10/03/20 08/11/21 mcg/actuation mist for inhalation (Combivent Respimat) acetaminophen 325 mg tablet 650 mg PO BID 08/11/21 08/11/21 (Tylenol) fluticasone propionate 220 2 puff INHALATION HS 08/11/21 08/11/21 mcg/actuation HFA aerosol inhaler (Flovent HFA) levothyroxine 150 mcg tablet 150 mcg PO DAILYBB 08/11/21 08/11/21 niacin 500 mg tablet 500 mg PO HS 08/11/21 08/11/21 tramadol 50 mg tablet 100 mg PO BID 08/11/21 08/11/21 Results & Data (ED) Vital Signs Vital Signs - 24 hr 08/11/21 02:20 08/11/21 02:30 08/11/21 02:42 Temperature 36.8 C Temperature Source Oral Pulse Rate 91 H 92 H 106 H Pulse Rate from SpO2 Sensor 92 H Respiratory Rate 17 20 18 Respiratory Effort / Characteristics Non-Labored Spontaneous Respiratory Depth Normal Respiratory Pattern Regular Blood Pressure 170/89 H Blood Pressure Mean 116 Blood Pressure Position Lying Pulse Oximetry 100 96 Oxygen Delivery Method Room Air Sepsis Recent Fever Within 48 Hours No Sepsis New/Unexplained Change in Mental Status No Sepsis Action Taken by Nursing No Action Required 08/11/21 03:00 08/11/21 03:30 08/11/21 04:00 Temperature Temperature Source Pulse Rate 89 93 H 98 H Pulse Rate from SpO2 Sensor 92 H 94 H 100 H Respiratory Rate 19 18 17 Respiratory Effort / Characteristics Respiratory Depth Respiratory Pattern Blood Pressure 147/66 H 154/65 H Blood Pressure Mean 93 94 Blood Pressure Position Pulse Oximetry 95 98 100 Oxygen Delivery Method Sepsis Recent Fever Within 48 Hours Sepsis New/Unexplained Change in Mental Status Sepsis Action Taken by Nursing Laboratory Data Result diagrams: 08/11/21 02:31 08/11/21 02:31 Lab Results 08/11/21 08/11/21 08/11/21 Range/Units 02:23 02:29 02:31 WBC 16.86 H (4.8-10.8) K/uL RBC 3.51 L (4.2-5.4) M/uL Hgb 9.5 L (12.0-16.0) g/dL POC Hgb (12.0-16.0) g/dl Hct 28.1 L (37-47) % POC Hct (37-47) % MCV 80.1 (80-100) fL MCH 27.1 (25-34) pg MCHC 33.8 (32-36) g/dL RDW Std Deviation 58.3 H (36.4-46.3) fL RDW Coeff of Mary 22.3 H (11.5-14.5) % Plt Count 611 H (130-400) K/uL MPV 12.2 H (7.4-10.4) fL Immature Gran % (Auto) 1.3 % Neut % (Auto) 80.3 % Lymph % (Auto) 8.8 % [place] % (Auto) 7.9 % Eos % (Auto) 1.2 % Baso % (Auto) 0.5 % Neut # (Auto) 13.53 H (1.4-6.5) K/uL Lymph # (Auto) 1.49 (1.2-3.4) K/uL [place] # (Auto) 1.33 H (0.11-0.59) K/uL Eos # (Auto) 0.20 (0-0.5) K/uL Baso # (Auto) 0.09 (0-0.2) K/uL Immature Gran # (Auto) 0.22 H (0.00-0.02) K/uL Anisocytosis Present Target Cells 2+ PT (9.0-12.0) Seconds INR (0.9-1.1) POC Sodium (135-144) mmol/L Sodium (136-145) mmol/L POC Potassium (3.3-5.0) mmol/L Potassium (3.5-5.1) mmol/L POC Chloride (101-112) mmol/L Chloride (98-107) mmol/L Carbon Dioxide (21-32) mmol/L POC Total CO2 (24-31) mmol/L Anion Gap (3-11) POC Anion Gap (16-25) mmol/L POC BUN (7-18) mg/dl BUN (6-23) mg/dl Creatinine (0.6-1.2) mg/dl POC Creatinine (0.6-1.3) mg/dl Est Cr Clr Drug Dosing ml/min Est GFR ( Amer) ml/min Est GFR (Non-Af Amer) ml/min BUN/Creatinine Ratio (10-20) Glucose (70-99(Fasting)) mg/dl POC Glucose (other) (70-99) mg/dl Lactate 0.9 (0.4-2.0) mmol/L Calcium (8.5-10.1) mg/dl POC Ioniz Calcium Ronny (1.12-1.32) mmol/l Total Bilirubin (0.2-1.0) mg/dl AST (13-39) U/L ALT (7-52) U/L Alkaline Phosphatase (34-104) U/L Ammonia Total Protein (6.0-8.3) gm/dl Albumin (3.4-5.0) gm/dl Globulin (2.5-4.0) gm/dl Albumin/Globulin Ratio (0.9-2) Lipase TSH (0.300-4.500) uIu/ml Free T4 (0.61-1.60) ng/dl SARS-CoV-2, RNA, NAAT NEGATIVE (NEGATIVE) 08/11/21 08/11/21 08/11/21 Range/Units 02:31 02:31 02:31 WBC (4.8-10.8) K/uL RBC (4.2-5.4) M/uL Hgb (12.0-16.0) g/dL POC Hgb (12.0-16.0) g/dl Hct (37-47) % POC Hct (37-47) % MCV (80-100) fL MCH (25-34) pg MCHC (32-36) g/dL RDW Std Deviation (36.4-46.3) fL RDW Coeff of Mary (11.5-14.5) % Plt Count (130-400) K/uL MPV (7.4-10.4) fL Immature Gran % (Auto) % Neut % (Auto) % Lymph % (Auto) % [place] % (Auto) % Eos % (Auto) % Baso % (Auto) % Neut # (Auto) (1.4-6.5) K/uL Lymph # (Auto) (1.2-3.4) K/uL [place] # (Auto) (0.11-0.59) K/uL Eos # (Auto) (0-0.5) K/uL Baso # (Auto) (0-0.2) K/uL Immature Gran # (Auto) (0.00-0.02) K/uL Anisocytosis Target Cells PT 19.0 H (9.0-12.0) Seconds INR 1.8 H (0.9-1.1) POC Sodium (135-144) mmol/L Sodium 134 L (136-145) mmol/L POC Potassium (3.3-5.0) mmol/L Potassium 3.4 L (3.5-5.1) mmol/L POC Chloride (101-112) mmol/L Chloride 99 (98-107) mmol/L Carbon Dioxide 23 (21-32) mmol/L POC Total CO2 (24-31) mmol/L Anion Gap 12 H (3-11) POC Anion Gap (16-25) mmol/L POC BUN (7-18) mg/dl BUN (6-23) mg/dl Creatinine (0.6-1.2) mg/dl POC Creatinine (0.6-1.3) mg/dl Est Cr Clr Drug Dosing ml/min Est GFR ( Amer) ml/min Est GFR (Non-Af Amer) ml/min BUN/Creatinine Ratio (10-20) Glucose 134 H (70-99(Fasting)) mg/dl POC Glucose (other) (70-99) mg/dl Lactate (0.4-2.0) mmol/L Calcium 9.0 (8.5-10.1) mg/dl POC Ioniz Calcium Ronny (1.12-1.32) mmol/l Total Bilirubin 40.2 H (0.2-1.0) mg/dl AST 168 H (13-39) U/L ALT 137 H (7-52) U/L Alkaline Phosphatase (34-104) U/L Ammonia Total Protein 6.1 (6.0-8.3) gm/dl Albumin 3.2 L (3.4-5.0) gm/dl Globulin 2.9 (2.5-4.0) gm/dl Albumin/Globulin Ratio 1.1 (0.9-2) Lipase TSH 0.100 L (0.300-4.500) uIu/ml Free T4 1.15 (0.61-1.60) ng/dl SARS-CoV-2, RNA, NAAT (NEGATIVE) 08/11/21 08/11/21 08/11/21 Range/Units 02:38 04:01 04:01 WBC (4.8-10.8) K/uL RBC (4.2-5.4) M/uL Hgb (12.0-16.0) g/dL POC Hgb 10.2 L (12.0-16.0) g/dl Hct (37-47) % POC Hct 30 L (37-47) % MCV (80-100) fL MCH (25-34) pg MCHC (32-36) g/dL RDW Std Deviation (36.4-46.3) fL RDW Coeff of Mary (11.5-14.5) % Plt Count (130-400) K/uL MPV (7.4-10.4) fL Immature Gran % (Auto) % Neut % (Auto) % Lymph % (Auto) % [place] % (Auto) % Eos % (Auto) % Baso % (Auto) % Neut # (Auto) (1.4-6.5) K/uL Lymph # (Auto) (1.2-3.4) K/uL [place] # (Auto) (0.11-0.59) K/uL Eos # (Auto) (0-0.5) K/uL Baso # (Auto) (0-0.2) K/uL Immature Gran # (Auto) (0.00-0.02) K/uL Anisocytosis Target Cells PT (9.0-12.0) Seconds INR (0.9-1.1) POC Sodium 137 (135-144) mmol/L Sodium (136-145) mmol/L POC Potassium 3.5 (3.3-5.0) mmol/L Potassium (3.5-5.1) mmol/L POC Chloride 104 (101-112) mmol/L Chloride (98-107) mmol/L Carbon Dioxide (21-32) mmol/L POC Total CO2 24 (24-31) mmol/L Anion Gap (3-11) POC Anion Gap 14.0 L (16-25) mmol/L POC BUN 21 H (7-18) mg/dl BUN (6-23) mg/dl Creatinine (0.6-1.2) mg/dl POC Creatinine 1.3 (0.6-1.3) mg/dl Est Cr Clr Drug Dosing ml/min Est GFR ( Amer) ml/min Est GFR (Non-Af Amer) ml/min BUN/Creatinine Ratio (10-20) Glucose (70-99(Fasting)) mg/dl POC Glucose (other) 143 H (70-99) mg/dl Lactate (0.4-2.0) mmol/L Calcium (8.5-10.1) mg/dl POC Ioniz Calcium Ronny 1.13 (1.12-1.32) mmol/l Total Bilirubin (0.2-1.0) mg/dl AST (13-39) U/L ALT (7-52) U/L Alkaline Phosphatase (34-104) U/L Ammonia Cancelled Total Protein (6.0-8.3) gm/dl Albumin (3.4-5.0) gm/dl Globulin (2.5-4.0) gm/dl Albumin/Globulin Ratio (0.9-2) Lipase Cancelled TSH (0.300-4.500) uIu/ml Free T4 (0.61-1.60) ng/dl SARS-CoV-2, RNA, NAAT (NEGATIVE) Administered Medications Levothyroxine Sodium (Levothyroxine Sodium 150 Mcg Tablet) 150 mcg PO DAILYBB EDOUARD Stop: 09/10/21 06:38 Last Admin: 08/11/21 08:27 Dose: 150 mcg Documented by: [id number] Tramadol HCl (Tramadol Hcl 50 Mg Tablet) 100 mg PO BID EDOUARD Stop: 09/10/21 08:59 Last Admin: 08/11/21 08:28 Dose: 100 mg Documented by: [id number] Ursodiol (Ursodiol 300 Mg Cap) 300 mg PO BID EDOUARD Stop: 09/10/21 08:59 Last Admin: 08/11/21 08:27 Dose: 300 mg Documented by: [id number] Discontinued Medications Diphenhydramine HCl (Diphenhydramine 50 Mg/Ml Vial) 50 mg IV NOW STA Stop: 08/11/21 03:59 Last Admin: 08/11/21 04:16 Dose: 50 mg Documented by: [id number] Imaging Data Radiologist's Impression: Chest X-Ray 08/11/21 02:30 XR chest 1V portable CLINICAL HISTORY: weakness TECHNIQUE: Single frontal radiograph of the chest was obtained. Comparison: Comparison is made to chest 2 views 10/17/2020 FINDINGS: No lines and tubes are seen. Cardiomegaly is noted. The lungs are clear. No evidence of pleural effusion or pneumothorax. IMPRESSION: No acute chest disease. Cardiomegaly is noted. ACT 112: Negative or not required by law. Electronically signed by: Ernst Tristan M.D. 08/11/2021 7:21 AM Discharge Plan Visit Data Chief Complaint: Illness Stated Complaint: Illness ED Provider: Heavenly Santillan Discharge Problem: Hepatitis, Painless jaundice Patient Disposition: Admitted As Inpatient Discharge Instructions Interventions: ED Discharge Assessment Last Done: 08/11/21 06:20
[2021-08-11 06:09] LABS: Appearance Urine Clear (Clear); Bacteria Urine Automated Negative (Negative); Blood Urine Negative (Negative); Color Urine Dark Yellow; Epithelial Cell Urine Auto 0-5 /lpf (0-5); Glucose Urine UA Negative (Negative); Ketones Urine Negative (Negative); Leukocyte Esterase Urine 1+ (Negative); Nitrite Urine Positive (Negative); Protein Urine Negative (Negative); Specific Gravity Urine 1.016 (1.000-1.030); Urobilinogen Urine Negative (Negative); pH Urine 5.5 (4.5-7.5)
[2021-08-11 06:16] LABS: Bilirubin Urine 3+ (Negative)
[2021-08-11 06:33] LABS: RBC Urine Automated 0-4 /hpf (0-4)
[2021-08-11] MEDS ORDERED: IPRATROPIUM BROMIDE/ALBUTEROL respimat INH INH PRN (06:39)
[2021-08-11] MEDS ORDERED: ALBUTEROL HFA 8 GM INHALER INH PRN (07:05)
[2021-08-11] MEDS ORDERED: IPRATROPIUM BROMIDE HFA INHALER INH PRN (07:06)
--- NOTE | 2021-08-11 07:22 | XRay Report ---
XR chest 1V portable CLINICAL HISTORY: weakness TECHNIQUE: Single frontal radiograph of the chest was obtained. Comparison: Comparison is made to chest 2 views 10/17/2020 FINDINGS: No lines and tubes are seen. Cardiomegaly is noted. The lungs are clear. No evidence of pleural effus ion or pneumothorax. IMPRESSION: No acute chest disease. Cardiomegaly is noted. ACT 112: Negative or not required by law. Electronically signed by: Ernst Tristan M.D. 08/11/2021 7:21 AM
[2021-08-11 08:24] LABS: Ferritin 961.5 ng/ml (8-388)
[2021-08-11 08:25] LABS: Phosphorus 2.1 mg/dl (2.5-4.9)
[2021-08-11] MEDS: ursodioL 300 MG CAP PO SCH ×2 (08:27→20:23)
[2021-08-11] MEDS: LEVOTHYROXINE SODIUM 150 MCG TABLET PO SCH (08:27)
[2021-08-11] MEDS: traMADol HCL 50 MG TABLET PO SCH ×2 (08:28→20:15)
--- NOTE | 2021-08-11 08:56 | CT Scan Report ---
ABDOMEN AND PELVIS CT WITHOUT CONTRAST CT DOSE: 4035.81 mGy.cm HISTORY: Acute jaundice, eval for pancreatic mass TECHNIQUE: Multiaxial CT images of the abdomen and pelvis were performed without contrast. A dose lo wering technique was utilized adhering to the principles of ALARA. COMPARISON STUDY: Chest radiograph of same day. FINDINGS: Coronary artery calcifications. Mild cardiomegaly. Mild subsegmental bibasilar atelectasis/ scarring. Scattered punctate calcified granulomata of the lung bases. Tiny tree-in-bud nodules of the left lung base appear benign. No pneumatosis or pneumoperitoneum. Unremarkable spleen and right adrenal gland. Left adrenal gland adenoma measures 2.1 cm. Moderate to severe atrophy of the pancreas. There is mild fullness involving the uncinate processes of the pancre as on image 146 of series 5 without discrete mass identified. Intrahepatic and extrahepatic biliary d uctal dilation with cholecystectomy. No pancreatic ductal dilation. No hepatic mass or marginal nodul arity identified. 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 An additional per ipherally calcified 9 mm aneurysm is noted within the upper abdomen on image 106 adjacent to the kaela ac artery. Unremarkable kidneys without hydronephrosis. Partial distention of the urinary bladder. Th ere is questioned mild endometrial thickening. No adnexal mass. Aorta and IVC are unremarkable. There is no adenopathy. Mild distal esophageal wall thickening with small hiatal hernia. There is no bowel obstruction. Colon ic diverticulosis. Minimal stranding is noted adjacent to the mid to distal sigmoid colon. No signifi cant bowel wall thickening. Prior appendectomy. Unremarkable soft tissues. Degenerative changes of th e spine, pelvis and hips. IMPRESSION: 1. Atrophic pancreas without pancreatic mass or pancreatic ductal dilation identified. There is mild fullness involving the uncinate process of the pancreas which likely represents normal parenchyma. 2. Mild biliary ductal dilation may be secondary to prior cholecystectomy. Correlate with serum bilir ubin. 3. Colonic diverticulosis with trace stranding adjacent to the mid to distal sigmoid colon. Correlate clinically to exclude subtle acute diverticulitis. 4. No bowel obstruction. 5. Small hiatal hernia. 6. Additional findings as above. ACT 112: Negative or not required by law. The above report was generated using voice recognition software. It may contain grammatical, syntax o r spelling errors. Dictated: 08/11/2021 8:26 AM Transcribed: 08/11/2021 8:50 AM Kiera [id number] [email or web address] Electronically signed by: Scout Maddox M.D. 08/11/2021 8:54 AM
[2021-08-11] MEDS ORDERED: predniSONE 20 MG TAB PO SCH (09:15)
[2021-08-11] MEDS: ENOXAPARIN INJ 40 MG/0.4 ML SYR SQ SCH ×2 (09:20→20:24)
--- NOTE | 2021-08-11 09:28 | Gastrointestinal Consultation ---
Date of Consultation August 11, 2021 Assessment & Plan (1) Painless jaundice: (2) Elevated LFTs: Pt is a 66 yo female presented w painless jaundice, progressive weakness, poor po intake; noted to have elevated LFTs w significantly elevated Tbili of 40, CT wo obvious/apparent signs of biliary obstructions. DDX: acute hepatitis, DILI, viral illness, AIH. MELD 29 - Obtain serologies to r/o AIH, viral/acute hepatitis - MRCP -> if negative, wo signs of biliary obstruction will need referral to tertiary care center w available Hepatology and Liver transplant supports - IVF support - Symptomatic management for itching Supervising Physician Co-Signing Physician Notes Saw and evaluated the patient. We were consulted for evaluation of the patient was admitted early this morning and found to have a bilirubin of currently 40. She denies having any abdominal pain, nausea vomiting fevers or chills. She is not certain if she has had any recent medication changes as well. Physical examination No obvious distress Deep scleral icterus noted No abdominal tenderness noted Impression: Patient presenting with a significant elevation of her liver associated enzymes. Based on the presentation I doubt this is a biliary etiology but MRCP may be of benefit to look for stone disease. The patient likely has cholestatic hepatitis and I would recommend that we refer the patient to a tertiary care center where evaluation could be performed. In the meantime we would suggest screening for common causes of liver disease with, hepatitis A serologies, hepatitis B serologies, hepatitis C serologies, autoimmune markers, ceruloplasmin, CMV and EBV. I would recommend the empiric use of N- acetylcysteine in addition to prednisone 40 mg/day while awaiting the imaging study results. Recommendations were discussed with the internal medicine service History of Present Illness Reason for Consultation: Painless jaundice Requesting Physician: Dr. Carmine Quinn Attending Physician: Dr. Lico Briceno History of Present Illness Pt is a 66 yo female who presented to ED w c/o jaundice started 2.5 weeks ago, progressive weakness, fatigue, chills, itching, poor appetite. Denies fevers, CP, SOB, changes in bowel habits. Labs indicate elevated WBC, LFTs w significantly elevated Tbili of 40. She denies sick contact, new meds, herbal medications. No family hx of GI malignancies or liver diseases. CT abd/pelvis wo contrast: 1. Atrophic pancreas without pancreatic mass or pancreatic ductal dilation identified. There is mild fullness involving the uncinate process of the pancreas which likely represents normal parenchyma. 2. Mild biliary ductal dilation may be secondary to prior cholecystectomy. Correlate with serum bilirubin. 3. Colonic diverticulosis with trace stranding adjacent to the mid to distal sigmoid colon. Correlate clinically to exclude subtle acute diverticulitis. 4. No bowel obstruction. 5. Small hiatal hernia. Allergies Allergy/AdvReac Type Severity Reaction Status Date / Time egg Allergy Intermediate HICCUPS Verified 08/11/21 02:46 AND EARS SWELLED A CHILD Rjoqvry-RPO-JmU Reductase AdvReac Mild NAUSEA/VOMI Verified 08/11/21 02:46 Inhibitor TING [Grmgzhc-Htj-Ogc Reductase Inhibitor] Home Medications Medication Instructions Recorded Confirmed Type cyanocobalamin (vitamin B-12) 1,000 mcg PO QAM 01/17/19 08/11/21 History 1,000 mcg tablet aspirin 81 mg tablet,delayed 81 mg PO QPM 01/26/19 08/11/21 History release (Adult Aspirin Regimen) ipratropium 20 mcg-albuterol 100 1 puff INHALATION QID PRN 10/03/20 08/11/21 History mcg/actuation mist for inhalation (Combivent Respimat) acetaminophen 325 mg tablet 650 mg PO BID 08/11/21 08/11/21 History (Tylenol) fluticasone propionate 220 2 puff INHALATION HS 08/11/21 08/11/21 History mcg/actuation HFA aerosol inhaler (Flovent HFA) levothyroxine 150 mcg tablet 150 mcg PO DAILYBB 08/11/21 08/11/21 History niacin 500 mg tablet 500 mg PO HS 08/11/21 08/11/21 History tramadol 50 mg tablet 100 mg PO BID 08/11/21 08/11/21 History Patient History Medical History (Updated 08/11/21 @ 09:35 by KLAUS Villegas) Asthma BID FLOVENT. HAS NOT USED RESCUE INHALER FOR A LONG TIME Fibromyalgia GERD (gastroesophageal reflux disease) History of anemia Hyperlipidemia Hypothyroidism Morbid obesity Osteoarthritis Overactive bladder Syncope 2019, passed out, had full workup for TIA/CVA but was ruled out. Surgical History (Updated 04/30/21 @ 11:33 by KLAUS Hoff) H/O lumbar discectomy History of appendectomy History of cataract surgery RT/LEFT History of right knee joint replacement History of spinal surgery History of temporal artery biopsy (~01/17/19) RT History of tooth extraction S/P laparoscopic cholecystectomy (~2013) Family History Mother Dementia Hypertension Father , in his 60s of an [place] Coronary heart disease Myocardial infarction Hypertension Family/Other Cancer Nephew Brother Family history of diabetes mellitus Other No family history of adverse response to anesthesia Denies family history of Ovarian cancer Prostate cancer Breast cancer Colorectal cancer Social History Smoking Status: Never smoker Second Hand Exposure: No; Hx Alcohol Use: No Hx Substance Use: No Preferred Language: Ivorian Communication Ability: Effective Visual Impairment: Limited Hearing Ability: Normal Drug Safety Data Management Specialist Required: No Beliefs That Will Affect Care: None marital status: Current Living Situation: Alone current occupational status: employed 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 Feels Safe at Home: Yes Childhood Exposure to Second-Hand Smoke: Yes caffeine: Yes (coke) during the past year weight has: remained stable Dental Care, Regularly: No Physical Activity Frequency: 1-2 Times per Week Seatbelt Use: always Sunscreen Use: Yes Assistive Devices: Cane and Walker Review of Systems Review of Systems: All systems reviewed & are unremarkable except as noted in HPI & below Physical Exam Constitutional: WD/WN, vitals as above well groomed, cooperative and comfortable Eyes: Icteric sclera, PERRLA, EOMs intact ENMT: external ear and nose normal, oropharynx normal Respiratory: normal respiratory effort, lungs clear to auscultation Cardiovascular: RRR, no murmur, no edema Gastrointestinal (Abdomen): normal bowel sounds, soft, nontender, no hepatosplenomegaly Skin: no rashes, warm and dry + jaundice Neurologic: Motor/Sensory: no asterixis Psychiatric: A+Ox3, euthymic affect Lymphatic: no lymphedema Results & Data ([facility]) Vital Signs (Past 12 Hours) Vital Signs Temp Pulse Pulse Resp BP BP Pulse Ox 08/11/21 08:25 36.6 C 105 H 20 129/71 96 08/11/21 08:23 37.0 C 101 H 18 139/73 95 08/11/21 06:40 96 H 08/11/21 06:00 94 H 18 126/66 08/11/21 05:31 99 H 19 134/46 L 08/11/21 05:30 95 H 16 95 08/11/21 05:00 95 H 22 143/93 H 99 08/11/21 04:42 96 H 20 133/80 95 08/11/21 04:41 97 H 21 08/11/21 04:00 98 H 17 100 08/11/21 03:30 93 H 18 154/65 H 98 08/11/21 03:00 89 19 147/66 H 95 08/11/21 02:42 36.8 C 106 H 18 170/89 H 96 08/11/21 02:30 92 H 20 08/11/21 02:20 91 H 17 100
[2021-08-11] MEDS ORDERED: LORazepam 0.5 MG TAB SL SCH (09:57)
[2021-08-11] MEDS ORDERED: LORazepam 0.5 MG TAB SL STA (09:57)
[2021-08-11] MEDS ORDERED: AcetylCYSTEINE 15,000 MG in D5W 200mL (Load) IV ONE (10:00)
[2021-08-11] MEDS ORDERED: AcetylCYSTEINE 5,000mg in D5W 500mL (Maint Dose #1) IV SCH (11:00)
[2021-08-11 12:14] LABS: Amphetamines+Metham, Urine Neg (Neg); Barbiturates, Urine Neg (Neg); Benzodiazepine, Urine Neg (Neg); Cocaine, Urine Neg (Neg); MDMA (Ecstacy), Urine Neg (Neg); Methadone, Urine Neg (Neg); Opiate, Urine Neg (Neg); Phencyclidine, Urine Neg (Neg)
--- NOTE | 2021-08-11 12:28 | Electrocardiogram Report ---
Test Reason : Blood Pressure : / mmHG Vent. Rate : 092 BPM Atrial Rate : 092 BPM P-R Int : 176 ms QRS Dur : 116 ms QT Int : 374 ms P-R-T Axes : 062 -21 088 degrees QTc Int : 462 ms Normal sinus rhythm Non-specific intra-ventricular conduction delay Poor R wave progression, consider anterior NJ vs. lead placement vs. LVH Abnormal ECG When compared with ECG of 17-OCT-2020 14:29, Premature supraventricular complexes are no longer Present Questionable change in QRS axis Confirmed by Lopez Lazo ([id number]) on 08/11/2021 12:28:12 PM Referred By: REFERRED SELF Confirmed By:Lopez Lazo
--- NOTE | 2021-08-11 12:49 | Medical Student Progress Note ---
Date of Service August 11, 2021 Assessment & Plan (1) Painless jaundice: (2) Elevated LFTs: Plan: 66 yo female w/ pmh hld, gerd, fm, presents with painless jaundice, progressive weakness, poor po intake: (1) Painless jaundice -bilirubin 40 and conjugated bili 20 - high wbc neut predominance: on prednisone 40 mg - MELD 29 DDX: - acute hepatitis: hep panel pending; - drug induced liver injury: tylenol level not able to be obtained due to icteric blood, treated with NAC ppx; - Autoimmune hepatitis: serology pending - Most likely obstructive vs hepatitis - MRCP -> if negative, wo signs of biliary obstruction will need referral to tertiary care center w/ available Hepatology and Liver transplant supports - MRCP -> if positive, ERCP - IVF support - ursodoxycholic acid, cholestyramine for pruritis DVT: lovenox F/E/N NPO Code: Full Code Dispo: med/tele Admission and Anticipated Discharge Date Admission Date: August 11, 2021 Subjective Pt does not feel well and is tired. Pt came in with jaundice, progressive weakness, loss of appetite, leg swelling, feet tingling. Urine is dark orange and stool is acholic. Review of Systems Constitutional: + fatigue, + malaise, + weakness and + anorexia; no fever, no chills and no body aches Cardiovascular: + edema; no chest pain with activity, no radiating jaw, neck or arm pain and no dyspnea at rest Gastrointestinal: no abdominal pain, no heartburn, no nausea and no vomiting Integumentary: jaundiced skin Physical Exam Constitutional: tired and sick ENMT: icteric sclera Respiratory: upper lobes clear b/l, lower lobes crackles Cardiovascular: rrr without mrg (no S3 or S4) Gastrointestinal (Abdomen): no tenderness to palpation Skin: weeping soles of feet b/l Results & Data ([facility]) Vital Signs (Past 12 Hours) Vital Signs Temp Pulse Pulse Resp BP BP Pulse Ox 08/11/21 11:28 36.9 C 104 H 20 107/61 97 08/11/21 08:25 36.6 C 105 H 20 129/71 96 08/11/21 08:23 37.0 C 101 H 18 139/73 95 08/11/21 06:40 96 H 08/11/21 06:00 94 H 18 126/66 08/11/21 05:31 99 H 19 134/46 L 08/11/21 05:30 95 H 16 95 08/11/21 05:00 95 H 22 143/93 H 99 08/11/21 04:42 96 H 20 133/80 95 08/11/21 04:41 97 H 21 08/11/21 04:00 98 H 17 100 08/11/21 03:30 93 H 18 154/65 H 98 08/11/21 03:00 89 19 147/66 H 95 08/11/21 02:42 36.8 C 106 H 18 170/89 H 96 08/11/21 02:30 92 H 20 08/11/21 02:20 91 H 17 100
[2021-08-11] MEDS ORDERED: COUGH DROP (SUGAR FREE) LOZ 24 LOZ/1 BOX BUCCAL ONE (12:55)
[2021-08-11] MEDS ORDERED: PHYTONADIONE PED 1 MG/0.5ML AMP/SYRG IV STA (14:17)
[2021-08-11] MEDS ORDERED: PHYTONADIONE 10 MG in DEXTROSE 5% 50 ML IV ONE (14:30)
[2021-08-11] MEDS ORDERED: MoRPHine SULFATE 2 MG/ML CARP IV STA (14:53)
[2021-08-11] MEDS ORDERED: AcetylCYSTEINE 10,000 MG in D5W 1L (Maint Dose #2) IV SCH (15:00)
[2021-08-11] MEDS: CHOLESTYRAMINE LIGHT 4 GM PKT PO SCH ×2 (17:02→21:12)
[2021-08-11] MEDS ORDERED: MoRPHine SULFATE 2 MG/ML CARP ONE (17:05)
--- NOTE | 2021-08-11 17:55 | Magnetic Resonance Report ---
MR MRCP CLINICAL HISTORY: painless jaundice . TECHNIQUE: Multiplanar multisequence MR images were obtained of the abdomen, followed by reconstruct ion of MRCP imaging. COMPARISON: CT of the abdomen and pelvis from 08/11/2021 FINDINGS: There is a limited examination as the patient has a large body habitus and could not raise her hands over her head or hold her breath. Liver: There is homogeneous signal intensity seen within the liver. No mass lesions are seen. There i s no evidence for intrahepatic or duct dilatation. Gallbladder: The gallbladder is absent status post cholecystectomy. Spleen: There is homogeneous signal throughout the splenic parenchyma. No mass lesions are seen. Pancreas: There is atrophy of the pancreas. There is no evidence for encroachment There is no evidenc e for a mass lesion. The uncinate process appears within normal limits on this limited MRI. Kidneys: There is homogeneous signal throughout the renal parenchyma bilaterally. Adrenal glands: The adrenal glands are not well imaged on this study. Abdominal cavity: There is small hiatal hernia. The visualized osseous structures, demonstrate no evidence of abnormal signal intensity. MRCP: There is limited evaluation of the biliary tree, again due to the motion artifact present. Is e vidence for physiologic dilatation of the common bile duct and intrahepatic biliary duct radicles. Co mmon bile duct measures 10 mm. There is no definite intraluminal filling defects or evidence for chol edocholithiasis. The pancreatic duct is normal in course and caliber. IMPRESSION: 1. Limited examination as described above. 2. Physiologic dilatation of the common bile duct and intrahepatic biliary duct radicles with no defi nite MR evidence for choledocholithiasis. 3. Atrophy of the pancreas with no definite MR evidence for a mass at the uncinate process. 4. Repeat CT examination with contrast and thin section images would be the study of choice for the [facility] evaluation. ACT 112: Negative or not required by law. Electronically signed by: Ramon Frank M.D. 08/11/2021 5:52 PM
[2021-08-11] MEDS ORDERED: NIACIN 500 MG TAB PO SCH (21:00)
[2021-08-11] MEDS ORDERED: FLUTICASONE FUROATE 200MCG 14 PUFFS/INHALER INH SCH (21:00)
[2021-08-11] MEDS ORDERED: ASPIRIN 81 MG ECTAB PO SCH (21:00)
--- NOTE | 2021-08-11 22:34 | Communication Note ---
Date of Service: August 11, 2021 Informed by Case Management that patient is unable to transfer to [facility] due to [facility] insurance. She may be transferred to either [facility] or [facility]. Patient states she prefers transfer to [facility]. Spoke with Dr. Brown - Hospitalist at [facility] as well as Hepatology. Patient has been accepted for transfer by the Hospitalist service. No beds available tonight - anticipate tomorrow transfer Will DC Prednisone Please update son Iram Beaver when patient is transferring
[2021-08-12] MEDS: LEVOTHYROXINE SODIUM 150 MCG TABLET PO SCH (05:38)
[2021-08-12 06:59] LABS: Basophils # (auto) 0.03 K/uL (0-0.2); Basophils % (auto) 0.2 %; Hemoglobin 8.4 g/dL (12.0-16.0); Immature Granulocytes # (auto) 0.24 K/uL (0.00-0.02); Immature Granulocytes % (auto) 1.5 %; Lymphocytes # (auto) 1.61 K/uL (1.2-3.4); Lymphocytes % (auto) 9.8 %; Mean Corpuscular Hemoglobin 26.6 pg (25-34); Mean Corpuscular Hgb Conc 33.6 g/dL (32-36); Mean Corpuscular Volume 79.1 fL (80-100); Mean Platelet Volume 11.8 fL (7.4-10.4); Monocytes # (auto) 0.92 K/uL (0.11-0.59); Monocytes % (auto) 5.6 %; Neutrophils # (auto) 13.69 K/uL (1.4-6.5); Neutrophils % (auto) 82.9 %; Platelet Count 518 K/uL (130-400); RDW Coefficient of Variation 22.3 % (11.5-14.5); RDW Standard Deviation 58.6 fL (36.4-46.3); Red Blood Count 3.16 M/uL (4.2-5.4); White Blood Count 16.49 K/uL (4.8-10.8)
[2021-08-12 07:08] LABS: INR 1.1 (0.9-1.1); Prothrombin Time 11.7 Seconds (9.0-12.0)
[2021-08-12 07:16] LABS: Anisocytosis Present; Target Cells 2+
[2021-08-12 07:42] LABS: Aspartate Aminotransferase 123 U/L (13-39); Potassium 3.5 mmol/L (3.5-5.1)
[2021-08-12 07:44] LABS: Alanine Aminotransferase 108 U/L (7-52); Albumin Level 2.6 gm/dl (3.4-5.0); Anion Gap 13 (3-11); Calcium 8.6 mg/dl (8.5-10.1); Carbon Dioxide 20 mmol/L (21-32); Chloride 101 mmol/L (98-107); Glucose 188 mg/dl (70-99(Fasting)); Sodium 134 mmol/L (136-145); Total Protein 5.2 gm/dl (6.0-8.3)
[2021-08-12 07:45] LABS: Bilirubin,Total 34.4 mg/dl (0.2-1.0)
[2021-08-12 07:51] LABS: HBSAG NON-REACTIVE (NON-REACTIVE); Hepatitis A Antibody IgM NON-REACTIVE (NON-REACTIVE); Hepatitis B Core Antibody IgM NON-REACTIVE (NON-REACTIVE)
[2021-08-12 07:59] LABS: Bilirubin Direct 19.8 mg/dl (0-0.2)
[2021-08-12] MEDS: traMADol HCL 50 MG TABLET PO SCH (08:18)
[2021-08-12] MEDS: ursodioL 300 MG CAP PO SCH (08:19)
[2021-08-12] MEDS: ENOXAPARIN INJ 40 MG/0.4 ML SYR SQ SCH (08:19)
[2021-08-12] MEDS ORDERED: predniSONE 20 MG TAB PO SCH (09:15)
--- NOTE | 2021-08-12 09:51 | Gastroenterology Progress Note ---
Date of Service August 12, 2021 Assessment & Plan (1) Painless jaundice: (2) Elevated LFTs: Plan: Pt is a 66 yo female presented w painless jaundice, progressive weakness, poor po intake; noted to have elevated LFTs w significantly elevated Tbili of 40, CT wo obvious/apparent signs of biliary obstructions. DDX: acute hepatitis, DILI, viral illness, AIH. MELD 29 LFTs improved some w N-Acetylcysteine transfusion and Prednisone. MRCP w/ atrophy of pancreas wo obvious mas, + s/p dilation of CBD and intrahepatic biliary ductw w/o definite choledocholithiasis. - Awaiting AIH, viral/acute hepatitis - Continue 21Hr protocol NAC and Prednisone - IVF support - Symptomatic management for itching - Recommend transfer to tertiary care center with Hepatology and liver transplant team availabilities -> awaiting bed at [facility] Admission and Anticipated Discharge Date Admission Date: August 11, 2021 Supervising Physician Co-Signing Physician Notes I saw and evaluated the patient this afternoon. She had presented with a significant elevation of her liver associated enzymes and initially INR. The patient appears to have a severe cholestatic hepatitis of unclear etiology. He has noted some improvement of her fatigue and symptoms after initiation with therapy with steroids in addition to N-acetylcysteine. The patient does take acetaminophen on an outpatient basis of approximately 1300 to 2000 mg/day. Perhaps the patient's symptomology is related to this medication use. Recommendations Please continue N-acetylcysteine Prednisone 40 mg/day Await Viral serologies, autoimmune serologies, and Ceruloplasmin Continue with referral to a tertiary care center given the elevation of the patient's bilirubin Subjective Pt reports she feels better today. LFTs improved, received NAC infusion and Prednisone yesterday Review of Systems Review of Systems: All systems reviewed & are unremarkable except as noted in HPI & below Physical Exam Constitutional: WD/WN, vitals as above well groomed, cooperative and comfortable Eyes: PERRL, conjunctivae normal, anicteric sclerae ENMT: external ear and nose normal, oropharynx normal Respiratory: normal respiratory effort, lungs clear to auscultation Cardiovascular: RRR, no murmur, no edema Gastrointestinal (Abdomen): normal bowel sounds, soft, nontender, no hepatosplenomegaly Skin: no rashes, warm and dry + jaundice Psychiatric: A+Ox3, euthymic affect Lymphatic: no lymphedema Results & Data ([facility]) Vital Signs (Past 12 Hours) Vital Signs Temp Pulse Pulse Resp BP Pulse Ox 08/12/21 07:28 96 H 08/12/21 07:22 37.2 C 101 H 16 129/67 94 08/12/21 03:58 36.8 C 97 H 18 124/66 95 08/11/21 23:32 37.0 C 87 18 125/68 95
--- NOTE | 2021-08-12 12:09 | Ultrasound Report ---
US venous doppler LE BI CLINICAL HISTORY: leg swelling COMPARISON: None available at the time of this dictation. TECHNIQUE: Bilateral lower extremity real-time compression venous ultrasound with Color Doppler imagi ng. Utilizing real-time ultrasonic imaging multiple real time high-resolution ultrasonic images with comp ression and noncompression maneuvers of the deep venous system in addition to color doppler imaging w ere performed from the common femoral vein through the proximal calf veins. FINDINGS: This is a limited examination due to patient's large body habitus. On the left side, there there is normal compressibility of the deep venous system from the common fem oral vein through the proximal calf veins. However, all the calf veins are not well imaged due to the body habitus and leg swelling. No current evidence of acute thrombosis is identified. On the right side, there is evidence for nonobstructing thrombus within the proximal superficial femo ral vein. It compresses and flow is seen at this site. The remaining deep veins are patent. There is again decreased visualization of the calf veins. Impression: 1. Limited examination due to body habitus. 2. There is evidence for a small nonobstructing thrombus within the proximal right superficial femora l vein. 3. No other evidence for thrombus is seen. 4. There is decreased visualization of the calf veins bilaterally due to body habitus and swelling. ACT 112: Negative or not required by law. Electronically signed by: Ramon Frank M.D. 08/12/2021 12:08 PM
[2021-08-12] MEDS: CHOLESTYRAMINE LIGHT 4 GM PKT PO SCH (12:12)
[2021-08-12 13:37] LABS: EBV Virus Capsid Ag IgG Ab >750.00 U/mL
--- NOTE | 2021-08-12 14:55 | Medical Student Progress Note ---
Date of Service August 12, 2021 Assessment & Plan (1) Painless jaundice: (2) Elevated LFTs: Plan: 66 yo female w/ pmh hld, gerd, fm, presents with painless jaundice, progressive weakness, poor po intake: (1) Painless jaundice -bilirubin 34 and conjugated bili 20 -continue prednisone 40 mg - MELD score 29 DDX: - viral hepatitis:pt had viral GI illness sx within past 30 days hep panel pending; EBV positive IgG Abs; CMV pending - drug induced liver injury: tylenol level not able to be obtained due to icteric blood, treated with NAC ppx; NAC discontinued - Autoimmune hepatitis: serology pending - MRCP: is negative for obstruction: discharge to tertiary care center w/ available Hepatology and Liver transplant supports; [facility] - IVF support - ursodoxycholic acid, cholestyramine for pruritis Chronic venous insufficiency - venous duplex ultrasound; rule out dvt Crackles lower right lung field - likely atelectasis DVT: lovenox F/E/N NPO Code: Full Code Dispo: med/tele Admission and Anticipated Discharge Date Admission Date: August 11, 2021 Subjective No acute events overnight. Feels better. Slept well. no bowel movement since admission even though she has tried. Urine still orange/black. learned pt took 2 tylenol 650 mg, 200 mg of tramadol, and Aleve 1-2 x per day if tylenol and tramadol did not work for 10 plus years. Feet still have parasthesias. This started last October 2020 after a spinal block. Review of Systems Constitutional: + malaise and + weakness; no fever and no chills Respiratory: no dyspnea, no sob Cardiovascular: Additional Comments: no chest pain, no diaphoresis, no palpatations Gastrointestinal: no abd pain, no diarrhea, no nausea, no vomitting Genitourinary: no bowel movement in hospital Physical Exam Constitutional: pt appears sick but not as much as yd Eyes: icteric sclera Respiratory: lower right lung field as crackles ow b/l CTA Cardiovascular: Regular, rate and rhythm wo murmurs, rubs or gallops, no s3 , no s4 Gastrointestinal (Abdomen): nontender to palpation Musculoskeletal: edema b/l R>L in diameter, weeping soles of feet Results & Data ([facility]) Vital Signs (Past 12 Hours) Vital Signs Temp Pulse Pulse Resp BP Pulse Ox 08/12/21 11:09 37.0 C 94 H 16 116/56 L 94 08/12/21 07:28 96 H 08/12/21 07:22 37.2 C 101 H 16 129/67 94 08/12/21 03:58 36.8 C 97 H 18 124/66 95
--- NOTE | 2021-08-12 15:15 | Discharge Summary ---
Date of Service August 12, 2021 Admission HPI Per Admitting Provider José Rodriguez is a 66yo female with history of FM, GERD, HLP and Hypothyroidism presenting with painless jaundice and pruritis. Patient had an episode of nausea/vomiting and diarrhea approximately 1 month ago that lasted 2 days - possibly attributed to something that she ate out at a restaurant. Nobody else with symptoms at that time. Her GI symptoms resolved and she reports feeling well for about a week. Then, appx 2.5 weeks ago she began to develop weakness, fatigue, malaise, chills, poor appetite, orange colored urine and acholic stools as well as jaundice and scleral icterus. She has developed significant pruritis - patient occasionally itching to the point of breaking the skin. She feels that both of her feet are numb and she notes some swelling in the right foot which is new. She has decreased oral intake and nausea following meals. Also with dry mouth. She denies fever, chills, abdominal pain or bloating. Denies chest pain or shortness of breath. Denies weight loss. Denies diarrhea, dysuria. Patient takes Tylenol daily - 650mg BID. Does not drink EtOH. Patient had labs drawn by [place] PCP last week (however, UNABLE to find in the system). She states she was contacted by her PCP's office and told that she had pancreatitis. No additional complaints at this time. ER Course: Behadryl Principal Diagnosis painless jaundice Discharge Exam gen aaox3 pleasant nad heent nc at mmm breathing unlabored no accessory muscles good effort skin no rashes no pallor marked icterus Discharge Data Allergies Allergy/AdvReac Type Severity Reaction Status Date / Time egg Allergy Intermediate HICCUPS Verified 08/11/21 02:46 AND EARS SWELLED A CHILD Kftdnio-LGE-YkS Reductase AdvReac Mild NAUSEA/VOMI Verified 08/11/21 02:46 Inhibitor TING [Vwijeul-Arz-Jzb Reductase Inhibitor] Consultations 08/11/21 04:42 ED Decision to Admit Stat 08/11/21 08:29 Consult Gastroenterology Routine 08/11/21 19:16 Burn CD for patient Stat Ordered Studies 08/11/21 03:58 CT abd pelvis wo con Urgent 08/11/21 08:55 MR MRCP Stat 08/12/21 10:57 US venous doppler LE Routine Hospital Course (1) Painless jaundice: (2) Elevated LFTs: (1) Painless jaundice -bilirubin 34 down from 40 yesterday -INR did correct from 1.8 to 1.1 w vitamin K -had 21hr protocol of NAC -continue prednisone 40 mg as rec'd for GI DDX: - acute hepatitis was considered, hepatitis panel nonreactive - other viral - obviously wide range of possibilities - EBG looks old (IgG positive, IgM not); CMV, HSV, parvo all still pending - drug induced liver injury: no overt/acute/new ingestions - does chronically take tylenol, frequently tramadol and naproxen -- ?acute on chronic injury - Autoimmune hepatitis: SHANNEN, AMA, Anti-smooth muscle all pending. - MRCP negative for findings c/w obstructive pathology faint rales - likely atelectasis, no respiratory symptoms b/l LE edema - largely venous stasis driven, asymmetry eval'd w US --> some superficial phlebitic findings but no DVT DVT proph: lovenox for transfer to [facility] for ongoing evaluation / hepatology expertise Total Time Total Time Spent Total Time Spent (In Minutes): <30 Discharge Plan Discharge Items Patient Disposition: Transfer Acute Care Hospital Reason For Visit: ELEVATED BILIRUBIN, PRURITIS Discharge Diagnosis: Painless jaundice of unknown origin Activity: Per Instructions section Non-emergency contact: Primary Care Provider Call non-emergency contact if: you have any medication questions, your pain is worsening and your temperature is above 101 Follow-up/Referrals: Shea Palmer CRNP [Primary Care Provider] - Diet: Regular Addtl Attending Provider Instructions: Pt is a 66 yo female presented w painless jaundice, progressive weakness, poor po intake; noted to have slightly elevated LFTs w significantly elevated Tbili of 40 (20 conjugated), CT without obvious/apparent signs of biliary obs tructions. DDX: acute hepatitis, DILI, viral illness, AIH. MELD 29 Appears to be acute process given normal bili and LFTs in April Pt. alert and oriented LFT's improved some w N-Acetylcysteine transfusion and Prednisone. MRCP w/ atrophy of pancreas w/o obvious mas, + s/p dilation of CBD and intrahepatic biliary duct w/o definite choledocholithiasis. INR 1.8, responded to vit. K; with recheck 1.1 Albumin low at 2.6 - pending AIH, viral/acute hepatitis labs - Completed 21Hr protocol NAC and Prednisone - continued IVF support - Symptomatic management for itching with - ursodeoxycholic acid and cholestyramine Pending Studies at Discharge: Yes (Ceruloplasmin, auto-immune panel, CMV/EBV/Hep A, B, C/HSV/Parvovirus) Stand-Alone Forms: My [facility] Skilled Items Patient informed of condition?: Yes DNR: No Discharge Level of Care: Other Communicable Disease: No Discharge Prognosis: Stable Lines: Peripheral IV Urinary Catheter: No Medications and DC Order Prescriptions: Continued cyanocobalamin (vitamin B-12) 1,000 mcg tablet 1,000 mcg PO QAM RF: 0 aspirin [Adult Aspirin Regimen] 81 mg tablet,delayed release (DR/EC) 81 mg PO QPM RF: 0 Combivent Respimat 20-100 mcg/actuation Mist 1 puff INHALATION QID PRN (Reason: SHORT OF BREATH) RF: 0 levothyroxine 150 mcg tablet 150 mcg PO DAILYBB RF: 0 Flovent HFA 220 mcg/actuation HFA aerosol inhaler 2 puff inhalation HS RF: 0 Discontinued tramadol 50 mg tablet 100 mg PO BID RF: 0 acetaminophen [Tylenol] 325 mg Tablet 650 mg PO BID RF: 0 niacin 500 mg Tablet 500 mg PO HS RF: 0 Discharge Orders: Discharge Order (Routine); Ordered 08/12/21 Ordered By: Daren Ferguson Admission Data Admit Date/Time: 08/11/21 04:30 Attending Provider: Carmine Quinn Admit Provider: Apryl Scanlon Primary Care Provider: Shea Palmer Other Providers: Apryl Scanlon ; Lico Briceno Coding Level of Care Code D/C DAY MANAGEMENT <30 MINS Diagnoses Painless jaundice R17 Elevated LFTs R79.89
[2021-08-15 00:11] LABS: Anti Mitochondrial Antibody NEGATIVE (NEGATIVE); Anti Nuclear Antibody Screen NEGATIVE (NEGATIVE); CMV IgG Antibody <0.60 U/mL; CMV IgM Antibody <30.00 AU/mL; Ceruloplasmin 41 mg/dL (18-53); Herpes Simplex Ab IgG-1 <0.90 index; Parvovirus IgG 6.3 (<0.9); Smooth Muscle Antibody NEGATIVE (NEGATIVE)
== END 2021-08-12 16:48 | disposition short-term general hospital (02) | DRG 442 ==
LOC: ED 02:13 → 2N 04:30 → SUATTDRO 04:30 → 2N 06:20
DX: Z91.012 Allergy to eggs; I80.01 Phlebitis and thrombophlebitis of superficial vessels of right lower extremity; Z79.891 Long term (current) use of opiate analgesic; I80.11 Phlebitis and thrombophlebitis of right femoral vein; E78.5 Hyperlipidemia, unspecified; Z79.82 Long term (current) use of aspirin; M19.90 Unspecified osteoarthritis, unspecified site; Z79.890 Hormone replacement therapy; E66.01 Morbid (severe) obesity due to excess calories; Z66 Do not resuscitate; E03.9 Hypothyroidism, unspecified; R79.1 Abnormal coagulation profile; M79.7 Fibromyalgia; Z79.899 Other long term (current) drug therapy; Z68.44 Body mass index [BMI] 60.0-69.9, adult; Z88.8 Allergy status to other drugs, medicaments and biological substances; Z79.51 Long term (current) use of inhaled steroids; I87.2 Venous insufficiency (chronic) (peripheral); R17 Unspecified jaundice; J45.909 Unspecified asthma, uncomplicated; Z90.49 Acquired absence of other specified parts of digestive tract